=== PATIENT | male | born 1955 | race Caucasian/White ===

== ENCOUNTER 2020-07-12 07:03 | Inpatient (IN) | payer MEDICARE, SELFPAY ==
[2020-07-12] VITALS (12 sets, daily range): BP systolic 110–143; BP diastolic 58–95; PULSE 64–83; RESP 16–22; TEMP 36.1–36.6; O2SAT 91–100; BMI 38.5
--- NOTE | ~2020-07-12 | US_ITS ---
EXAMINATION: US abdomen complete DATE: 07/14/2020 09:02 INDICATION: Nausea. Abnormal liver function tests. TECHNIQUE: Multiple grayscale and Doppler ultrasound images of the abdomen were obtained. COMPARISON: CT abdomen and pelvis 07/12/2020 FINDINGS: The visualized portions of the head of the pancreas are normal. There is diffuse hepatic st eatosis with focal sparing. There is normal flow in main portal vein. The gallbladder is normal in si ze. No gallstones or gallbladder wall thickening. There was no sonographic Welch sign. The common du ct is mildly dilated to 8 mm. Inferior vena cava is normal. Abdominal aorta is obscured by bowel gas. The kidneys are normal size. The spleen is normal in size. IMPRESSION: 1. Diffuse hepatic steatosis. 2. Mildly dilated common duct, new from 07/12/2020. Reviewed, dictated and finalized at location B. PMENT MAINTENANCE SUPERVISOR
--- NOTE | ~2020-07-12 | XR_ITS ---
EXAMINATION: XR chest 2V DATE: 07/12/2020 07:31 INDICATION: Left-sided sharp chest pain. TECHNIQUE: frontal and lateral views of the chest were obtained. COMPARISON: None FINDINGS: Mild streaky left basilar atelectasis. No other airspace opacities, pulmonary edema, pleural effusion or pneumothorax. The cardiomediastinal silhouette is normal. There are bridging osteophytes at multi ple levels in the spine, consistent with diffuse idiopathic skeletal hyperostosis (DISH). IMPRESSION: 1. Mild left basilar atelectasis. Reviewed, dictated and finalized at location A. NNAISSANCE CREWMEMBER
--- NOTE | ~2020-07-12 | CT_ITS ---
EXAMINATION: CT chest abdomen pelvis w con DATE: 07/12/2020 10:01 INDICATION: Chest and abdominal pain. TECHNIQUE: Computed tomography (CT) of the chest, abdomen, and pelvis was performed with 100 mL Omnip aque 350 intravenous contrast. Automated exposure control and iterative reconstruction technique were employed. The dose-length product was 1610.38 mGy-cm. COMPARISON: None FINDINGS: CHEST CT: The lungs demonstrate motion artifact and mild atelectasis. A calcified left lung nodule is consisten t with old granulomatous disease. No pleural effusion. The heart size is normal. There are coronary a rtery calcifications. No pericardial effusion. There is mild mediastinal lymphadenopathy, likely reac tive. Bilateral gynecomastia is noted. The aorta is normal in caliber. There is mild thoracic spondyl osis. ABDOMEN/PELVIS CT: Calcifications in the liver and spleen are consistent with old granulomatous disease. The gallbladder , pancreas, adrenal glands, and left kidney are normal. There are cysts in right kidney measuring up to 14 mm. The prostate is mildly enlarged. There is diverticulosis of the colon without evidence of d iverticulitis. There are no dilated loops of bowel. The appendix is normal. There are no pathological ly enlarged lymph nodes. There is no free intraperitoneal fluid. Abdominal aorta is normal. There is moderate lumbar spondylosis. IMPRESSION: 1. Mild mediastinal lymphadenopathy, likely reactive. Reviewed, dictated and finalized at location B. WORK FEEDER
--- NOTE | 2020-07-12 07:10 | ECG_ITS ---
Measurements Intervals [place] Rate: 68 P: 58 AK: 161 QRS: -47 QRSD: 166 T: 33 QT: 407 QTc: 436 Interpretive Statements SINUS RHYTHM RIGHT BUNDLE BRANCH BLOCK INFERIOR INFARCT, AGE INDETERMINATE ABNORMAL ECG Electronically Signed On 07-12-2020 7:50:59 FILER FINISH by Stephon Vo D.O.
[2020-07-12 07:31] LABS: Basophils Percent Auto 0.5 % (0.2-1.2); Eosinophils Absolute Auto 0.2 K/mm3 (0-0.3); Eosinophils Percent Auto 2.6 % (0-4.4); Hematocrit 44.2 % (42.0-52.0); Hemoglobin 15.2 g/dL (14.0-18.0); Immature Granulocyte Absolute 0.04 K/mm3 (0.00-0.031); Immature Granulocyte Percent A 0.5 % (0-0.5); Lymphocytes Absolute Auto 2.26 K/mm3 (0.9-3.2); Lymphocytes Percent Auto 25.5 % (18.3-44.2); Mean Corpuscular HGB Conc 34.4 g/dl (32-36); Mean Corpuscular Hemoglobin 29.9 pg (26-34); Mean Corpuscular Volume 86.8 fl (80-100); Monocytes Absolute Auto 0.7 K/mm3 (0.1-0.6); Monocytes Percent Auto 7.6 % (2.6-8.5); Neutrophils Absolute Auto 5.6 K/mm3 (1.3-6.7); Neutrophils Percent Auto 63.3 % (45.5-73.1); Platelet Count Result 189 k/mm3 (150-375); Red Blood Count 5.09 M/mm3 (4.6-6.20); Red Cell Distribution Width 12.3 % (11.5-14.5); White Blood Count 8.9 K/mm3 (4.5-10.0)
[2020-07-12 07:40] LABS: INR 0.9; Prothrombin Time 12.8 Seconds (11.1-14.7)
[2020-07-12] MEDS: ONDANSETRON INJ 4 MG/2 ML VIAL 8 MG IV PUSH (07:40)
[2020-07-12 07:41] LABS: Partial Thromboplastin Time 25.1 SECONDS (22.3-36.8)
[2020-07-12] MEDS: ATROPINE SULFATE 1 MG/ML VIAL 0.4 MG IV PUSH (07:44)
--- NOTE | 2020-07-12 07:45 | ED.CHESTPAIN ---
HPI - Chest Pain General Chief Complaint: Chest Pain Stated Complaint: Chest pain Time Seen by Provider: 07/12/20 07:27 Source: patient and family Limitations: no limitations History of Present Illness HPI narrative: Patient is 65 years old white male presents with left side chest sharp pain at rest started 5 AM. Steady, constant, no aggravating or relieving factors. Currently patient feeling weak and nauseated. Patient denies radiation of pain or shortness of breath. Patient had similar symptom yesterday lasted for few hours then resolve spontaneously. Patient denies any fever, chills, shortness of breath, back pain, headache or exposure to anybody with COVID-19. Related Data Home Medications Medication Instructions Recorded Confirmed diclofenac sodium 50 mg PO DAILY 07/12/20 07/12/20 metformin 500 mg PO DAILY 07/12/20 07/12/20 simvastatin 5 mg PO DAILY 07/12/20 07/12/20 Allergies Allergy/AdvReac Type Severity Reaction Status Date / Time codeine Allergy Intermediate HIVES Verified 08/23/19 17:23 lisinopril Allergy Unknown Verified 08/23/19 17:23 Review of Systems Review of Systems: Narrative: CONSTITUTIONAL: Denies fever, chills, or sweats. EYES: Denies visual changes, redness, or discharge. ENT: Denies rhinorrhea, congestion, sore throat, or otalgia. CARDIOVASCULAR: Chest pain RESPIRATORY: Denies cough or dyspnea. GASTROINTESTINAL: Denies abdominal pain, nausea, vomiting, or diarrhea. GENITOURINARY: Denies dysuria or hematuria. SKIN: Denies rash or itching. MUSCULOSKELETAL: Denies back pain, joint pain, or myalgia. NEUROLOGIC: Denies headache, numbness, or weakness. PSYCHIATRIC: Denies anxiety or depression. PMFSH Past Medical History Medical History (Updated 07/12/20 @ 10:40 by Evelyne Alfaro MD) Diabetes mellitus, new onset Hyperlipidemia Hypertension Family History Family History Father Cerebrovascular accident Social History Social History Smoking status: Never smoker Alcohol intake: current Exam Narrative: Exam Narrative: General appearance: Well-developed, well-nourished Skin: Clammy skin, pale Head: Normocephalic, nontraumatic Eyes: Clear conjunctiva ENT: Oropharynx normal, ears normal, nose normal Neck: Supple, nontender Chest and respiratory: Airway patent, no respiratory distress, no accessory muscle use Heart: Regular rate/rhythm Abdomen: Soft, nontender, no organomegaly, quiet bowel sounds Vascular: Normal peripheral pulses, normal capillary refill. Musculoskeletal: Normal range of motion, nontender back Neurologic: Alert and oriented ?3, HOUSING DIRECTOR is normal as tested, no gross motor deficit Course Course Emergency Course: Improving Consultations Consultation #1: Nelda Wells the nurse practitioner of Dr. Radford community liaison. Was notified that the patient still having chest pain 2 out of 10. Will call me back to see if the patient can receive Lovenox at this moment or possible cardiac cath. Date: 07/12/20 Time: 10:40 Vital Signs Vital signs: Vital Signs Temperature 36.6 C 07/12/20 07:08 Pulse Rate 72 07/12/20 07:08 Respiratory Rate 16 07/12/20 07:08 Blood Pressure 137/95 H 07/12/20 07:08 Pulse Oximetry 97 07/12/20 07:08 Temperature 36.6 C 07/12/20 07:08 Pulse Rate 71 07/12/20 07:52 Respiratory Rate 18 07/12/20 07:52 Blood Pressure 118/70 07/12/20 07:52 Pulse Oximetry 91 07/12/20 07:52 MDM - Chest Pain MDM Narrative Medical decision making narrative: Patient presents with chest pain, in the ED patient was severely nauseated, pale and diaphoretic, heart
[2020-07-12 07:46] LABS: Anion Gap 6 mmol/L (8-16); Blood Urea Nitrogen 23 mg/dL (9-20); Calcium 8.9 mg/dL (8.4-10.2); Carbon Dioxide 28 mmol/L (22-30); Chloride 102 mmol/L (98-107); Estimated CRCL calculation 81 ml/min; Estimated Glomerular Filt Rate > 60; Glucose 270 mg/dL (75-110); Potassium 4.4 mmol/L (3.4-5.0); Sodium 136 mmol/L (137-145)
--- NOTE | 2020-07-12 07:49 | PC.NURSE ---
Pt called out and stated that pt wasn't feeling well. Pts heart rate was 40-47 pt was pale and diapiretic. 2nd EKG was done and 2nd line put in. Pts heart rate increased and pt states he is feeling better.
--- NOTE | 2020-07-12 07:52 | ECG_ITS ---
Measurements Intervals [place] Rate: 57 P: 29 SC: 188 QRS: -29 QRSD: 147 T: 3 QT: 415 QTc: 406 Interpretive Statements SINUS BRADYCARDIA ATRIAL AND VENTRICULAR PREMATURE COMPLEXES RIGHT BUNDLE BRANCH BLOCK INFERIOR INFARCT, AGE INDETERMINATE BASELINE ARTIFACT- I, II, AVR, V1, V4 ABNORMAL ECG Electronically Signed On 07-12-2020 8:05:24 DIRECTOR OPERATING ROOM by Stephon Vo D.O.
[2020-07-12] MEDS: SODIUM CHLORIDE 0.9% IV 1,000 ML 999 ML IV CONT (07:53)
[2020-07-12 07:58] LABS: Troponin I 0.165 ng/mL (0.000-0.034)
[2020-07-12 07:59] LABS: Alanine Aminotransferase 27 U/L (4-50); Albumin Level 3.9 g/dL (3.5-5.1); Alkaline Phosphatase 87 U/L (38-126); Aspartate Amino Transferase 32 U/L (17-59); Bilirubin,Total 0.8 mg/dL (0.2-1.3)
--- NOTE | 2020-07-12 08:10 | PC.NURSE ---
Pts called out stating that pt is having left arm pain 6/10 that started approx [address] Alfaro of this
[2020-07-12 08:19] LABS: Lipase 76 U/L (23-300)
[2020-07-12] MEDS: LORazepam INJ (*CRX) 2 MG/ML VIAL 1 MG IV PUSH (08:55)
[2020-07-12 11:00] LABS: Troponin I 0.135 ng/mL (0.000-0.034)
[2020-07-12] MEDS: NITROGLYCERIN SL 0.4 MG TABLET SUBLINGUAL ×2 (11:00→22:24)
--- NOTE | 2020-07-12 11:05 | PC.NURSE ---
second dose of nitro given to pt 11:05
--- NOTE | 2020-07-12 11:10 | PC.NURSE ---
pt received 3rd dose of Nitro /
[2020-07-12] MEDS: ENOXAPARIN 100 MG/ML SYRINGE SUB-Q (11:30)
--- NOTE | 2020-07-12 12:29 | ADMGEN ---
This patient, Sam Betts, was admitted to IMU Room 213-01. Patient/family oriented to hospital policies and general routines including ID bracelet, bed and alarms, visiting hours, pain management, procedures, bathroom and other care routines, personal items, smoking policy, room service/diet, and visiting hours. Information on how to activate the Rapid Response Team has been discussed. Patient/Family are encouraged to report perceived risks to care and to ask questions if they do not understand what they are told or what they should do.
--- NOTE | 2020-07-12 13:39 | PM.IMHP ---
H&P: HPI History of Present Illness Date/Time: 07/12/20 13:39 Chief complaint: Chest pain/NSTEMI Narrative: Sam Betts is a 65 year old male Has a history of having diabetes and hyper lipidemia. The patient has taken himself off his metformin. He has not had any previous history of any coronary artery disease. The patient stated this past Friday he did have some chest discomfort right before bed but he took a couple aspirin and went away on its own. Today he woke up at 5:00 a.m. this morning and felt okay but then he sat down to eat breakfast and developed some left-sided chest pain that radiated down his left arm. He was not able to complete his breakfast and was not of for headache or nauseated at that time. The patient stated that he had sharp pain he has not had any fever chills or shortness of breath. He has not had any exposure to COVID-19. it was noted in the ER records at the patient's heart rate went down to 36 beats per minute he was pale and diaphoretic. The patient was given Zofran and atropine for the symptoms listed above. Patient's heart rate has improved. The patient denies trying any new prescription medications or [id number] medication. Patient's troponin 0.165 and 0.135. Cardiology has been consulted. His glucose is 270. EKG was read as sinus bradycardia with a heart rate 57 with a right bundle branch block. An iron review past records and it looks like the right bundle branch block is chronic. The patient is being admitted into inpatient status on the date of service of 07/12/2020 Review of Systems Review of Systems: All systems reviewed & are unremarkable except as noted in HPI and below Constitutional: Constitutional: Reports as per HPI and Reports no additional constitutional complaints Eyes: Eyes: Reports as per HPI and Reports no additional eye complaints ENT: Reports system reviewed and no additional complaints, except as documented and Reports Normal hearing present Cardiovascular: Cardiovascular: Reports no additional cardiovascular complaints Respiratory: Respiratory: Reports no additional respiratory complaints and Reports no additional respiratory complaints Gastrointestinal: Gastrointestinal: Reports as per HPI and Reports no additional gastrointestinal complaints Musculoskeletal: Musculoskeletal: Reports no additional musculoskeletal complaints Integumentary/Breasts: Skin/Breast: Reports system reviewed and no additional complaints, except as docu and Reports as per HPI Neurologic: Reports system reviewed and no additional complaints, except as documented, Reports as per HPI and Reports Normal hearing present Psychiatric: Psychiatric: Reports no additional psychiatric complaints and Reports as per HPI Endocrine: Endocrine: Reports no additional endocrine complaints Hematologic/Lymphatic: Hematologic/Lymphatic: Reports no additional hematologic/lymphatic complaints Allergic/Immunologic: Allergic/Immunologic: Reports no additional allergic/immunologic complaints [facility] Past Medical History Medical History (Updated 07/12/20 @ 13:46 by Jaclyn Vazquez NP) Diabetes mellitus, new onset DM2 (diabetes mellitus, type 2) Hyperlipidemia Hypertension Rheumatoid arthritis Surgical History Surgical History (Updated 07/12/20 @ 13:46 by Jaclyn Vazquez NP) H/O colonoscopy with polypectomy S/P tonsillectomy and adenoidectomy Family History Family History (Updated 07/12/20 @ 13:47 by Jaclyn Vazquez NP) Father Cerebrovascular accident Mother Congestive heart failure Social History Social History (Updated 07/12/20 @ 13:49 by Jaclyn Vazquez NP) Social History: the patient lives with his Lupe and she is the durable power commercial litigation attorney. The patient is listed as a full code. The patient has 2 biological children and 1 stepchild. He occasionally drinks a your glass in line. The patient is retired from [employer]. he is a lifelong nonsmoker no laurajukia
[2020-07-12 13:47] LABS: Troponin I 0.311 ng/mL (0.000-0.034)
[2020-07-12] MEDS: DICLOFENAC SOD 25 MG TABLET.EC 50 MG PO (17:05)
--- NOTE | 2020-07-12 17:45 | PM.CNCAR ---
Assessment and Plan Assessment and plan (1) Acute non-ST elevation myocardial infarction (NSTEMI): Code(s): I21.4 - Non-ST elevation (NSTEMI) myocardial infarction Status: Acute Assessment and Plan: The patient has multiple risk factors for CAD, chest pain which is fairly typical for non-STEMI and troponins which reflected non-STEMI. He has had some mild recurrent chest discomfort this evening. I am recommending cardiac catheterization tomorrow, with possible PCI. Reviewed the procedure with the patient in detail. Reviewed possible risks and complications with patient including breathing problems, bleeding problems, blood vessel problems, unanticipated surgery, allergic reactions, kidney problems, CVA, RI, and among others. Discussed possibility of stenting and possible need for DAPT. Discussed the possibility that if DAPT is interrupted stent thrombosis can occur resulting in heart attack and . Patient understands risks and desires to proceed. (2) Hypertension: Code(s): I10 - Essential (primary) hypertension Status: Acute Assessment and Plan: Blood pressure at goal today. (3) Hyperlipidemia: Code(s): E78.5 - Hyperlipidemia, unspecified Status: Chronic Assessment and Plan: Takes a low dose of simvastatin Recheck lipids and likely increased to a high dose statin depending on cath results. (4) DM2 (diabetes mellitus, type 2): Code(s): E11.9 - Type 2 diabetes mellitus without complications Status: Chronic Assessment and Plan: Treatment per hospitalists History of Present Illness History of Present Illness Consult date/time: 07/12/20 17:45 Requesting physician: Buster Vargas MD Consult reason: chest pain Reason For Visit: Chest pain/NSTEMI Narrative: Date of service: 07/12/2020 Mr. Sam Betts is a 65-year-old white male whom we were asked to see at the request of Dr. Vargas for elevated troponins and chest pain consultation. He has history of hypertension, diabetes and hyperlipidemia but no prior history of heart disease. The patient is very active, and tries to walk 2.5 miles a few times a week. He was in his normal state of health until Friday night when he went to bed and he felt tingling in his left arm in his left chest felt uncomfortable. He got up stretched and walked around and it resolved. He did fine on his walk on Friday. This morning he woke up around 430 and was sitting at the computer reading and eating cereal around 530 when he started having more intense discomfort of the left chest which was a hurting sharp unremitting discomfort with some tingling of his left arm. He has some nausea with it. At its worst it was in -05/13. He came to the emergency room when it was quite intense. He has some lower abdominal discomfort and nausea and apparently once had vomiting with his heart rate down to 36 beats per minute and a drop in blood pressure down to his 80/50. He was sweaty and diaphoretic but recovered. He also was given some nitroglycerin which relieved the discomfort within 5 minutes. REc'd Lovenox around 11;30 a.m. He has been doing well until he started feeling some mild discomfort again this evening. Patient's troponins are 0.165, 0.135, and 0.311. His EKG had nonspecific findings. No history of bleeding problems. He does have a lot of anxiety at times. Some nausea associated with narcotics. Review of Systems Constitutional: Constitutional: Denies lethargy Eyes: Eyes: Reports no additional eye complaints ENT: Denies epistaxis and Denies nasal congestion Cardiovascular: Cardiovascular: Reports chest pain, Denies pedal edema, Denies lightheadedness and Denies palpitations Respiratory: Respiratory: Denies cough and Denies dyspnea Gastrointestinal:
[2020-07-12 18:09] LABS: Glucose Point of Care 153 (65-105)
[2020-07-12] MEDS: METOPROLOL TARTRATE 25 MG TABLET PO ×2 (18:32→22:25)
[2020-07-12] MEDS: NITROGLYCERIN OINTMENT 1 INCH DOSE 0.5 INCH TRANSDERM (18:33)
[2020-07-12 20:25] LABS: Glucose Point of Care 184 (65-105)
[2020-07-12] MEDS: LORazepam (*CRX) 0.5 MG TABLET PO (22:24)
[2020-07-13] VITALS (41 sets, daily range): BP systolic 93–143; BP diastolic 46–92; PULSE 60–86; RESP 12–21; TEMP 36.4–37.1; O2SAT 92–100
--- NOTE | 2020-07-13 00:43 | ADMGEN ---
This patient, Sam Betts, was admitted to [facility] Room 4. Patient/family oriented to hospital policies and general routines including ID bracelet, bed and alarms, visiting hours, pain management, procedures, bathroom and other care routines, personal items, smoking policy, room service/diet, and visiting hours. Information on how to activate the Rapid Response Team has been discussed. Patient/Family are encouraged to report perceived risks to care and to ask questions if they do not understand what they are told or what they should do. Report received from LORRIE Osullivan in IMU. Pt. denies chest pain at this time. Pt. appears to be in no apparent distress, able to ambulate independently. Pt. placed on monitoring engineer. Will continue to monitor pt.
[2020-07-13 05:47] LABS: Basophils Percent Auto 0.2 % (0.2-1.2); Eosinophils Absolute Auto 0.1 K/mm3 (0-0.3); Eosinophils Percent Auto 0.9 % (0-4.4); Hematocrit 42.3 % (42.0-52.0); Hemoglobin 14.3 g/dL (14.0-18.0); Immature Granulocyte Absolute 0.06 K/mm3 (0.00-0.031); Immature Granulocyte Percent A 0.4 % (0-0.5); Lymphocytes Absolute Auto 1.96 K/mm3 (0.9-3.2); Lymphocytes Percent Auto 14.1 % (18.3-44.2); Mean Corpuscular HGB Conc 33.8 g/dl (32-36); Mean Corpuscular Hemoglobin 30.6 pg (26-34); Mean Corpuscular Volume 90.4 fl (80-100); Mean Platelet Volume 11.2 fl (7.4-10.4); Monocytes Absolute Auto 1.3 K/mm3 (0.1-0.6); Monocytes Percent Auto 9.6 % (2.6-8.5); Neutrophils Absolute Auto 10.4 K/mm3 (1.3-6.7); Neutrophils Percent Auto 74.8 % (45.5-73.1); Platelet Count Result 182 k/mm3 (150-375); Red Blood Count 4.68 M/mm3 (4.6-6.20); Red Cell Distribution Width 12.8 % (11.5-14.5); White Blood Count 13.9 K/mm3 (4.5-10.0)
[2020-07-13] MEDS: METOPROLOL TARTRATE 25 MG TABLET PO ×3 (05:49→21:55)
[2020-07-13] MEDS: NITROGLYCERIN OINTMENT 1 INCH DOSE 0.5 INCH TRANSDERM (05:50)
[2020-07-13 06:02] LABS: Glucose Point of Care 193 (65-105)
[2020-07-13] MEDS: LORazepam (*CRX) 0.5 MG TABLET PO ×2 (07:23→15:20)
[2020-07-13] MEDS: ASPIRIN 81 MG CHEWABLE TABLET PO (07:23)
[2020-07-13] MEDS: ONDANSETRON INJ 4 MG/2 ML VIAL IV PUSH (07:23)
[2020-07-13 07:28] LABS: Alanine Aminotransferase 52 U/L (4-50); Albumin Level 3.7 g/dL (3.5-5.1); Alkaline Phosphatase 73 U/L (38-126); Anion Gap 6 mmol/L (8-16); Aspartate Amino Transferase 289 U/L (17-59); Bilirubin,Total 0.8 mg/dL (0.2-1.3); Blood Urea Nitrogen 19 mg/dL (9-20); Carbon Dioxide 28 mmol/L (22-30); Chloride 103 mmol/L (98-107); Cholesterol 183 mg/dL (0-200); Estimated CRCL calculation 88 ml/min; Estimated Glomerular Filt Rate > 60; Glucose 192 mg/dL (75-110); Lipase 456 U/L (23-300); Magnesium 1.6 mg/dL (1.6-2.3); Potassium 4.2 mmol/L (3.4-5.0); Sodium 137 mmol/L (137-145)
[2020-07-13 07:39] LABS: LDL Cholesterol Direct 136 mg/dL
--- NOTE | 2020-07-13 08:11 | ECG_ITS ---
Measurements Intervals [place] Rate: 75 P: 64 [place]: 184 QRS: -39 QRSD: 160 T: 42 QT: 393 QTc: 441 Interpretive Statements SINUS RHYTHM LEFT AXIS DEVIATION RIGHT BUNDLE BRANCH BLOCK INFERIOR INFARCT, AGE INDETERMINATE SUBTLE ST ELEVATION IN ANTEROSEPTAL LEADS- CONSIDER ACUTE INJURY BASELINE ARTIFACT- I, II, AVR, AVF ABNORMAL ECG Electronically Signed On 07-13-2020 8:56:39 PRINCIPAL TECHNICAL WRITER by Stephon Vo D.O.
--- NOTE | 2020-07-13 09:34 | PM.IMPN ---
Progress Note: A&P Assessment and Plan (1) Acute non-ST elevation myocardial infarction (NSTEMI): Code(s): I21.4 - Non-ST elevation (NSTEMI) myocardial infarction Status: Acute Assessment and Plan: patient's troponin level elevatin.165, 0.135, 0.311, 35.400 at 0530 this morning. Chest pain prior to admission, no longer has any chest pain. patient is is on aspirin received atropine in the emergency room. 1 episode of bradycardia and is now sinus rhythm. given subcu Lovenox in the emergency room. patient stated that his pain was relieved with the nitro. Only nausea symptoms remain at this time WBC count increased from 8.9-13.9, likely reactive, ordered UA and will repeat CBC in the morning Dr. Ngo completed a cardiac catheterization this morning. LAD occlusion was found in a drug-eluting stent was placed. Following jewel hole finish opener's recommendations at this time. (2) Rheumatoid arthritis: Code(s): M06.9 - Rheumatoid arthritis, unspecified Status: Chronic Assessment and Plan: Patient is on diclofenac and will continue with that. patient has not followed up with endocrinology. monitor closely for any signs and symptoms of bleeding Hemoglobin 14.3, hematocrit 42.3, platelets 182. patient is on SQ Lovenox diclofenac and aspirin. repeating CBC in morning. (3) Hyperlipidemia: Code(s): E78.5 - Hyperlipidemia, unspecified Status: Chronic Assessment and Plan: Yesterday LFTs were all within normal limits, today liver functions are all elevated. he possibly suffered some liver shock with the LAD occlusion, we will continue to monitor these LFTs daily with serial labs holding simvastatin at this due to this acute liver dysfxn (4) DM2 (diabetes mellitus, type 2): Code(s): E11.9 - Type 2 diabetes mellitus without complications Status: Chronic Assessment and Plan: Check A1c. Continue with sliding scale insulin. The patient stated that he stop taking metformin Glucose 270 yesterday, glucose 192 today Currently has a heart healthy diet, but may need diabetic diet as well. Subjective Date/time seen: 07/13/20 09:34 Patient was admitted as a non STEMI and will be undergoing a cardiac catheterization this morning. He denies any dysuria or hematuria, denies any rectal bleeding or pain with bowel movements. He is not having any abdominal pain at this time. He states he does feel nauseated at this time due to NPO status. He says he may have a problem with constipation so I have ordered scheduled as well as p.r.n. medications to treat constipation. He is currently not having any chest pain or discomfort, no arm shoulder pain or numbness, no jaw pain. No shortness of breath or dyspnea with conversation. He is currently comfortable and resting. *Upon repeat later review of his cardiac catheterization results he was found to have an LAD occlusion and a drug-eluting stent was placed. Review of Systems Review of Systems: All systems reviewed & are unremarkable except as noted in HPI and below Constitutional: Constitutional: Reports as per HPI, Reports no additional constitutional complaints, Denies chills and Denies lethargy Eyes: Eyes: Reports as per HPI and Reports no additional eye complaints ENT: Reports system reviewed and no additional complaints, except as documented, Reports Normal hearing present, Denies headache(s), Denies epistaxis and Denies nasal congestion Cardiovascular: Cardiovascular: Reports as per HPI, Reports no additional cardiovascular complaints, Reports chest pain, Denies pedal edema, Denies lightheadedness, Denies palpitations and Denies dyspnea Respiratory: Respiratory: Reports as per HPI, Reports no additional respiratory complaints, Reports no additional respiratory complaints, Denies cough and Denies dyspnea Gastrointestinal: Gastrointestinal: Reports as per HPI, Reports no additional gastrointestinal complaints, Denies melena, Re
[2020-07-13] MEDS: DICLOFENAC SOD 25 MG TABLET.EC 50 MG PO ×2 (10:14→18:34)
[2020-07-13] MEDS: DOCUSATE SODIUM 100 MG CAPSULE PO ×2 (10:14→20:56)
[2020-07-13] MEDS: SIMVASTATIN 5 MG TABLET PO (10:14)
[2020-07-13] MEDS: PANTOPRAZOLE SODIUM IV 40 MG VIAL IV PUSH (10:14)
--- NOTE | 2020-07-13 10:14 | WPDHPUPDATE1 ---
History and Physical Update Update Date/Time: 07/13/20 10:14 History and Physical has been reviewed, including an updated exam of the patient. Patient's discomfort last evening responded to in nitroglycerin and he has had no further problems. Elevated troponin of 30 noted this morning. EKG shows the same Q-waves in 3 and AVF but subtle ST elevation in V1 and V2. Patient is completely pain-free at the moment. There are NO changes in the patient's condition. Risks, benefits, and alternatives have been discussed and questions answered. Patient agrees to proceed with procedure.
--- NOTE | 2020-07-13 10:15 | WPDMODSED ---
Moderate Sedation Note-Pt Data Patient Data Diagnosis: NSTEMI Present Complaint: Chest pain Procedure to be performed/Plan: Conscious sedation left heart catheterization with possible PCI Allergies Allergy/AdvReac Type Severity Reaction Status Date / Time codeine Allergy Intermediate HIVES Verified 08/23/19 17:23 lisinopril Allergy Unknown Verified 08/23/19 17:23 Home Medications Medication Instructions Recorded Confirmed Type diclofenac sodium 50 mg 50 mg PO BID #180 tablet 10/08/19 07/12/20 Rx tablet,delayed release simvastatin 5 mg PO DAILY 07/12/20 07/12/20 History Current Medications: Active Medications Aspirin (Aspirin 81 Mg Chewable Tablet) 81 mg PO DAILY@0800 [facility] Last Admin: 07/13/20 07:23 Dose: 81 mg Documented by: Dextrose (Dextrose 50% 25 Gm/50 Ml Syringe) 12.5 gm IV PUSH PRN PRN; Protocol PRN Reason: Hypoglycemia Diclofenac Sodium (Diclofenac Sod 25 Mg Tablet.Ec) 50 mg PO BID [facility] Last Admin: 07/13/20 10:14 Dose: 50 mg Documented by: Docusate Sodium (Docusate Sodium 100 Mg Capsule) 100 mg PO Q12HR [facility] Last Admin: 07/13/20 10:14 Dose: 100 mg Documented by: Enoxaparin Sodium (Enoxaparin 40 Mg/0.4 Ml Syringe) 40 mg SUB-Q DAILY [facility] Last Admin: 07/13/20 10:03 Dose: Not Given Documented by: Famotidine (Famotidine 20 Mg Tablet) 20 mg PO Q12HR PRN PRN Reason: GERD Glucagon (Glucagon For Inj 1 Mg Vial) 1 mg IM PRN PRN; Protocol PRN Reason: Hypoglycemia Glucose (Glucose Oral Gel 15 Gm Of Glucse In 37.5 Gm Tube) 15 gm PO PRN PRN; Protocol PRN Reason: Hypoglycemia Acetaminophen (Ofirmev 1,000 Mg Ivpb) 1,000 mg in 100 mls @ 400 mls/hr IVPB Q6H PRN PRN Reason: Mild Pain (1-3) or Fever Stop: 07/13/20 10:34 Dextrose (Dextrose 5% 1,000 Ml) 1,000 mls @ 100 mls/hr IVPB PRN PRN; Protocol PRN Reason: Hypoglycemia Insulin Aspart (Insulin Aspart (*Bkc) 100 Units/Ml) 2 - 5 units SUB-Q TIDWM [facility]; Protocol Last Admin: 07/13/20 07:18 Dose: Not Given Documented by: Lorazepam (Lorazepam (*Crx) 0.5 Mg Tablet) 0.5 mg PO Q6H PRN PRN Reason: Anxiety Last Admin: 07/13/20 07:23 Dose: 0.5 mg Documented by: Metoprolol Tartrate (Metoprolol Tartrate 25 Mg Tablet) 25 mg PO Q8HR [facility] Last Admin: 07/13/20 05:49 Dose: 25 mg Documented by: Nitroglycerin (Nitroglycerin Sl 0.4 Mg Tablet) 0.4 mg SUBLINGUAL Q5MIN PRN PRN Reason: Chest Pain Last Admin: 07/12/20 22:24 Dose: 0.4 mg Documented by: Nitroglycerin (Nitroglycerin Ointment 1 Inch Dose) 0.5 inch TRANSDERM Q6HR [facility] Last Admin: 07/13/20 05:50 Dose: 0.5 inch Documented by: Ondansetron HCl (Ondansetron Inj 4 Mg/2 Ml Vial) 4 mg IV PUSH Q4H PRN PRN Reason: Nausea Last Admin: 07/13/20 07:23 Dose: 4 mg Documented by: Pantoprazole Sodium (Pantoprazole Sodium Iv 40 Mg Vial) 40 mg IV PUSH QAM [facility] Last Admin: 07/13/20 10:14 Dose: 40 mg Documented by: Polyethylene Glycol (Polyethylene Glycol 3350 17 Gm Powd.Pack) 17 gm PO QAM PRN PRN Reason: Constipation Senna/Docusate Sodium (Senna/Docusate Sodium Tablet) 1 tab PO HS PRN PRN Reason: constipation Simvastatin (Simvastatin 5 Mg Tablet) 5 mg PO DAILY [facility] Last Admin: 07/13/20 10:14 Dose: 5 mg Documented by: Sedation/Anesthesia: No previous sedation/anesthesia problems (including family history). [facility] Past Medical History Medical History (Updated 07/12/20 @ 17:52 by Kati Carpio MD) Anxiety Claustrophobia Diabetes mellitus, new onset DM2 (diabetes mellitus, type 2) Hyperlipidemia Hypertension Rheumatoid arthritis Surgical History Surgical History (Updated 07/12/20 @ 13:46 by Jaclyn Vazquez NP) H/O colonoscopy with polypectomy S/P tonsillectomy and adenoidectomy Family History Family History (Updated 07/12/20 @ 17:53 by Kati Carpio MD) Father Cerebrovascular accident Mother Congestive heart failure age 97, no history of CAD Social History Social History (Updated 07/12/20 @ 17:54 by Kati Carpio MD) Social Hi
--- NOTE | 2020-07-13 11:07 | PC.NURSE ---
0800-yobani held per MD order for cardiac cath today
[2020-07-13 11:38] LABS: Glucose Point of Care 186 (65-105)
--- NOTE | 2020-07-13 13:50 | ECG_ITS ---
Measurements Intervals Council Rate: 84 P: 55 ME: 179 QRS: -44 QRSD: 164 T: 75 QT: 384 QTc: 454 Interpretive Statements SINUS RHYTHM RIGHT BUNDLE BRANCH BLOCK ANTEROSEPTAL INFARCT, AGE INDETERMINATE INFERIOR INFARCT, AGE INDETERMINATE BASELINE ARTIFACT- I, III AVL, AVF ABNORMAL ECG Electronically Signed On 07-13-2020 14:27:50 OPTICAL ASSISTANT by Stephon Vo D.O.
--- NOTE | 2020-07-13 13:56 | P.PCNCC_ITS ---
Cardiac Cath Procedure Note Date of procedure:: 07/13/20 Performing physician:: Porfirio Radford MD Indication:: non ST-elevation OR Brief clinical history:: this is a 65-year-old man who presented yesterday with chest pain, ECG showed right bundle branch block and nonspecific ST segment changes. Troponin however vanessa to over 30 and angiography today demonstrates a 100% occlusion of the LAD after 2 small diagonal branches. There are no other coronary lesions of significance and PCI of this was recommended after angiography was just completed in this laboratory by Dr. Carpio. 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 The patient was systemically anticoagulated with Angiomax and received 180 mg of Brilinta orally prior to PCI. I placed a 6 [place] African CLS 3.5 guiding catheter in the aortic root was unable to engage the left main coronary artery with this. I then successfully engaged using a JL4 guiding catheter. I then advanced a 0.014 BMW wire into the left main into the LAD and was unable to cross the lesion. The BMW wire was withdrawn and a 0.014 pilot plant operator 150 wire was successfully crossed the lesion into a diagonal branch. I used the 2.5 mm emerge PTCA balloon to dilate the total occlusion which then restored flow into the LAD itself. Once the vessel was opened I placed the BMW wire back into the left coronary artery and around the bifurcation and down into the distal LAD down to the apex. After this the LAD was pre-dilated using a 3.0 x 20 mm emerge PTCA balloon and then was stented using a 3.0 x 26 mm Orsiro drug-eluting stent with a nice anatomical result. There was a visible step-down at the distal margin of the stent indicating a good stent apposition. At the end of the stent deployment there was ROWENA 3 flow down to the apex no evidence of dissection disruption or distal embolization of the LAD. Findings:: 100% occlusion of the LAD after 2 small diagonal branches resulting in acute OR with presentation yesterday. Successful PCI of this lesion as detailed above Conclusion:: 1. 100% occlusion of the LAD clinically felt to have occurred yesterday although the electrocardiogram really did not show changes typical of acute anterior injury. 2. Successful PCI of the LAD occlusion using the 3 x 26 mm Orsiro drug- eluting stent to the target lesion resulting in a very nice angiographic result and yarsani of ROWENA 3 flow into the LAD. Porfirio Radford MD [facility]
[2020-07-13] MEDS: SODIUM CHLORIDE 0.9% IV 1,000 ML 125 ML IV CONT (14:30)
--- NOTE | 2020-07-13 18:20 | PC.NURSE ---
1800-pt requires frequent redirection to lie still. Emphasized the importance of lying still and pt states he is unable to do it. Will continue to monitor and emphasize importance of lying still.
[2020-07-13 18:29] LABS: Glucose Point of Care 176 (65-105)
--- NOTE | 2020-07-13 19:49 | PM.PROC ---
Procedure Note - Detailed Date of procedure: 07/13/20 Pre-op diagnosis: Non ST elevation CA/status post LAD stent Post-op diagnosis: same Procedure performed: Conscious sedation Left heart catheterization Description of procedure: Procedure: 1. Conscious sedation 2. Left heart catheterization 3. Selective Coronary angiography 4. Left ventriculography Site: Right femoral artery Catheters: 5 [place] African arterial sheath, 5 [place] African 4 cm right and left Eze catheters, 5 [place] pigtail catheter, 6 [place] African arterial sheath Conscious sedation: The patient has no known prior history of adverse affects of conscious sedation. Oropharynx was clear. The patient is deemed a good candidate for conscious sedation. Conscious sedation began at: 1252 Conscious sedation ended at: 1308 Total conscious sedation time: 16 minutes Medications: Versed 2 mg, fentanyl 50 mcg IV push The patient had continuous hemodynamic monitoring, and was also continuously monitored by: Heraclio Strange RN The patient tolerated conscious sedation well. Detailed procedure: After informed consent the patient brought to the catholic priest and the right femoral area was prepped and draped in the usual fashion. After conscious sedation and local anesthesia the right femoral artery was punctured and cannulated with the arterial sheath. Selective Coronary angiography was performed with the coronary catheters in multiple projections. These were withdrawn. The pigtail catheter was advanced into the central circulation and left ventricle for pressure measurements and left ventriculography which was performed in the DOVE projection. This was withdrawn. Later the arterial sheath was replaced with a 6 [place] African sheath over its wire anticipating PCI. The patient tolerated the procedure well with no complications. Estimated blood loss was negligible. Anesthesia: local ( With conscious sedation) Surgeon: Kati Carpio MD Estimated blood loss (mL): 10 Drains: No Packing: No Pathology: none sent Complications: No immediate complications Condition: stable Disposition: observation Findings: Pressures: Pre angiographic aortic pressure was 120/64 and LV was 124/30 mmHg. Left coronary artery: The left main was patent. There was a 40% stenosis of the proximal Left anterior descending. After 2 small diagonals the Left anterior descending was completely occluded with a hazy thrombus. There were some [id number] collaterals present. The circumflex gave rise to 2 good-sized obtuse marginal vessels which had mild luminal irregularities. Right coronary artery: The dominant right coronary artery had minimal luminal irregularities Left ventriculogram: Left ventriculography revealed akinesis to dyskinesis of the mid and distal anterior schmitz, apex, and mid and distal inferior wall. The base of the ventricle was hyperdynamic. The estimated ejection fraction was estimated to be 30%. Conclusions: Occluded mid Left anterior descending with 40% proximal Left anterior descending stenosis and mild luminal irregularities elsewhere. Severe left ventricular dysfunction with akinesis to dyskinesis of the mid and distal anterior schmitz, apex, and mid and distal inferior wall. EF 30%. Elevated left ventricular end-diastolic pressure Recommendation: The patient underwent PCI and a drug-eluting stent was placed in the mid Left anterior descending by Dr. Radford. We hope it there is some improvement of left ventricular dysfunction and that the myocardium is stunned and not completely infarcted.
[2020-07-13] MEDS: TICAGRELOR 90 MG TABLET PO (20:56)
[2020-07-13] MEDS: carvediloL 6.25 MG TABLET PO (20:56)
[2020-07-13 22:49] LABS: Glucose Point of Care 256 (65-105)
[2020-07-14] VITALS (12 sets, daily range): BP systolic 95–108; BP diastolic 53–61; PULSE 66–78; RESP 14–23; TEMP 35.9–36.5; O2SAT 97–98
[2020-07-14] MEDS: LORazepam (*CRX) 0.5 MG TABLET PO (01:05)
[2020-07-14 05:47] LABS: Basophils Percent Auto 0.1 % (0.2-1.2); Eosinophils Percent Auto 0.3 % (0-4.4); Hematocrit 39.4 % (42.0-52.0); Hemoglobin 13.2 g/dL (14.0-18.0); Immature Granulocyte Absolute 0.07 K/mm3 (0.00-0.031); Immature Granulocyte Percent A 0.6 % (0-0.5); Lymphocytes Absolute Auto 1.35 K/mm3 (0.9-3.2); Lymphocytes Percent Auto 10.7 % (18.3-44.2); Mean Corpuscular HGB Conc 33.5 g/dl (32-36); Mean Corpuscular Hemoglobin 30.1 pg (26-34); Mean Corpuscular Volume 89.7 fl (80-100); Mean Platelet Volume 11.5 fl (7.4-10.4); Monocytes Absolute Auto 1.5 K/mm3 (0.1-0.6); Monocytes Percent Auto 11.6 % (2.6-8.5); Neutrophils Absolute Auto 9.7 K/mm3 (1.3-6.7); Neutrophils Percent Auto 76.7 % (45.5-73.1); Platelet Count Result 147 k/mm3 (150-375); Red Blood Count 4.39 M/mm3 (4.6-6.20); Red Cell Distribution Width 12.9 % (11.5-14.5); White Blood Count 12.6 K/mm3 (4.5-10.0)
[2020-07-14] MEDS: METOPROLOL TARTRATE 25 MG TABLET PO (05:48)
[2020-07-14 06:04] LABS: Alanine Aminotransferase 56 U/L (4-50); Albumin Level 3.5 g/dL (3.5-5.1); Alkaline Phosphatase 63 U/L (38-126); Anion Gap 6 mmol/L (8-16); Aspartate Amino Transferase 184 U/L (17-59); Blood Urea Nitrogen 22 mg/dL (9-20); Calcium 8.4 mg/dL (8.4-10.2); Carbon Dioxide 29 mmol/L (22-30); Chloride 99 mmol/L (98-107); Cholesterol 161 mg/dL (0-200); Estimated CRCL calculation 67 ml/min; Estimated Glomerular Filt Rate > 60; Glucose 201 mg/dL (75-110); HDL Direct 32 mg/dL; Lipase 38 U/L (23-300); Sodium 134 mmol/L (137-145); Triglycerides 156 mg/dL (<150)
[2020-07-14 06:14] LABS: LDL Cholesterol Direct 106 mg/dL
[2020-07-14 07:55] LABS: Glucose Point of Care 210 (65-105)
[2020-07-14] MEDS: INSULIN ASPART (*BKC) 100 UNITS/ML SUB-Q ×2 (08:12→13:01)
[2020-07-14] MEDS: carvediloL 6.25 MG TABLET PO (08:15)
[2020-07-14] MEDS: ASPIRIN 81 MG CHEWABLE TABLET PO (08:15)
[2020-07-14] MEDS: DICLOFENAC SOD 25 MG TABLET.EC 50 MG PO (08:16)
[2020-07-14] MEDS: DOCUSATE SODIUM 100 MG CAPSULE PO (08:16)
[2020-07-14] MEDS: ENOXAPARIN 40 MG/0.4 ML SYRINGE SUB-Q (08:18)
[2020-07-14] MEDS: PANTOPRAZOLE SODIUM IV 40 MG VIAL IV PUSH (08:19)
[2020-07-14] MEDS: ROSUVASTATIN 10 MG TABLET 20 MG PO (08:19)
[2020-07-14] MEDS: TICAGRELOR 90 MG TABLET PO (08:20)
--- NOTE | 2020-07-14 10:10 | PM.PNCARD ---
Progress Note: A&P Additional Plan 65-year-old man with: Coronary artery disease acute non ST elevation OK surprisingly due to proximal occlusion of the LAD. Was able to perform successful PCI with a drug-eluting stent to the target lesion with a good anatomical result. He does have significant left ventricular systolic dysfunction. Having said all that he is clinically stable. Looking at his medical regimen he is currently taking 2 beta-blockers and no ARB or Javier inhibitor. I am going to stop his metoprolol and continue his carvedilol. I will add losartan at a modest dosage of 25 mg daily. He will obviously be continued on dual anti-platelet therapy as well as rosuvastatin. Anticipate the patient being discharged today as he is relatively insistent on this. I will arrange for follow-up in the office with Dr. DESIERE delarosa subsequent to discharge. Porfirio Radford MD [facility] Subjective Date/time seen: Date of service: 07/14/20 10:10 Interval history: Follow-up visit in this 65-year-old man with: Sizable non ST-elevation OK due to occlusion of the LAD. The vessel was successfully revascularized yesterday with PTCA and stenting. The electrocardiogram did not suggest acute anterior infarction and he did have some collateral circulation leading to the Hope/impression that much of his anterior wall is stunned rather than infarcted. Patient is asymptomatic this morning feels well and would like to be discharged. Long discussion with the patient about the usual recommendation to remain in the hospital for at least another 24 hours or so because of arrhythmic risk after a significant infarction. Having said all that he still is relatively insistent on going home. He uses as the reason for this the inability to get a good night sleep in the hospital and get proper rest he believes he will recover more effectively resting at home Exam Const: General: comfortable and no acute distress; No confusion Orientation/consciousness: No confusion HENMT: General nose exam: no epistaxis Mouth: Yes moist mucous membranes Eyes: EOM: EOMs intact bilaterally Neck: Neck: supple and no JVD Thyroid: thyroid normal Carotids: no bruits Resp: Effort & Inspection: normal respiratory effort Auscultation: clear to auscultation bilaterally Cardio: Rate: regular rate Rhythm: regular rhythm Heart sounds: no murmurs Other: Intact femoral and pedal pulses, no femoral bruit Skin: General skin exam: normal color and no rashes or lesions noted Neuro: General: No confusion Cognition (Neuro): normal cognition Speech: normal speech Motor exam (neuro): Normal motor muscle tone present throughout Extrem: General: no edema Psych: Mental Status: mental status grossly normal Affect: normal affect Objective Data Vital Signs Vital Signs: Vital Signs - 24 hr 07/13/20 11:42 07/13/20 14:00 07/13/20 14:15 Temperature Pulse Rate 74 65 70 Respiratory Rate 14 16 16 Blood Pressure 119/63 124/79 123/63 Pulse Oximetry 96 98 98 07/13/20 14:20 07/13/20 14:30 07/13/20 14:45 Temperature 37.1 C Pulse Rate 80 60 76 Respiratory Rate 17 15 Blood Pressure 136/72 134/72 Pulse Oximetry 98 95 07/13/20 15:00 07/13/20 15:15 07/13/20 15:20 Temperature Pulse Rate 67 61 86 Respiratory Rate 16 12 Blood Pressure 118/73 120/69 Pulse Oximetry 96 96 07/13/20 15:30 07/13/20 15:45 07/13/20 16:00 Temperature Pulse Rate 83 81 76 Respiratory Rate 14 14 14 Blood Pressure 131/68 140/72 103/62 Pulse Oximetry 98 100 100 07/13/20 16:30 07/13/20 17:00 07/13/20 17:21 Temperature Pulse Rate 65 62 76 Respiratory Rate 17 14 15 Blood Pressure 125/73 143/71 H 129/67 Pulse Oximetry 97 96 96 07/13/20 17:27 07/13/20 17:30 07/13/20 17:35 Temperature Pulse Rate 76 79 78 Respiratory Rate 16 18 17 Blood Pressure 133/66 130/67 130/64 Pulse Oximetry 96 96 96 07/13/20 17:37 07/13/20 17:45 07/13/20 17:50 Temperature Pulse Rate 78 83 82
--- NOTE | 2020-07-14 11:34 | PC.NURSE ---
late entry for 829. pt off unit to ultrasound
--- NOTE | 2020-07-14 11:34 | PC.NURSE ---
Late entry for 929. Pt returned to room
[2020-07-14 11:57] LABS: Glucose Point of Care 219 (65-105)
--- NOTE | 2020-07-14 14:03 | PM.DS ---
DS: Admitting Diagnosis Admitting Diagnosis Admitting Diagnosis: Non ST elevation CA/status post LAD stent DS: Discharge Diagnosis Discharge Diagnosis (1) Hypertension: Code(s): I10 - Essential (primary) hypertension Status: Acute (2) DM2 (diabetes mellitus, type 2): Code(s): E11.9 - Type 2 diabetes mellitus without complications Status: Chronic (3) Acute non-ST elevation myocardial infarction (NSTEMI): Code(s): I21.4 - Non-ST elevation (NSTEMI) myocardial infarction Status: Acute DS: Summary Hospital Course Reason for hospitalization: Sam Betts is a 65 year old male Has a history of having diabetes and hyper lipidemia. The patient has taken himself off his metformin. He has not had any previous history of any coronary artery disease. The patient stated this past Friday he did have some chest discomfort right before bed but he took a couple aspirin and went away on its own. Today he woke up at 5:00 a.m. this morning and felt okay but then he sat down to eat breakfast and developed some left-sided chest pain that radiated down his left arm. He was not able to complete his breakfast and was not of for headache or nauseated at that time. The patient stated that he had sharp pain he has not had any fever chills or shortness of breath. He has not had any exposure to COVID-19. it was noted in the ER records at the patient's heart rate went down to 36 beats per minute he was pale and diaphoretic. The patient was given Zofran and atropine for the symptoms listed above. Patient's heart rate has improved. The patient denies trying any new prescription medications or [id number]-[id number] medication. Patient's troponin 0.165 and 0.135. Cardiology has been consulted. His glucose is 270. EKG was read as sinus bradycardia with a heart rate 57 with a right bundle branch block. An iron review past records and it looks like the right bundle branch block is chronic. Hospital Course: Patient was admitted to the hospital on 07/12/2020 with chest pain. He underwent cardiac catheterization 07/13/2020 by [facility] 100% occlusion of the LAD after 2 small diagonal branches. 40% proximal LAD stenosis with mild luminal irregularities elsewhere. Patient have placement of PCI with a 3 x 26 mm drug-eluting stent with good angiographic results. He had severe left ventricular dysfunction with akinesis and dyskinesis to the mid and distal anterior schmitz, apex and mid distal inferior schmitz with the EF 30%. He had an elevated left ventricular end-diastolic pressure. He had no further chest pain. Did not have any evidence of cardiac arrhythmia on telemetry. Echocardiogram 07/14/2020 demonstrated anterior wall markedly hypodynamic, left ventricular systolic function moderately reduced with EF of 30-35%, mild aortic valve sclerosis. Technically difficult exam from apical protection. Grade 1 diastolic dysfunction. Remain hospitalized for an additional day per monitoring for ventricular arrhythmias given his significantly decreased systolic function. The patient declined to stay in the hospital any longer. The patient's antihypertensives were adjusted his metoprolol was discontinued and he was switched to Coreg. He was also started on losartan 25 mg daily. He was discharged with a prescription for her sublingual nitroglycerin, Brilinta and aspirin. Time Spent with Patient Time attestation: Total time spent providing and/or coordinating discharge services: 40 minutes Time spent: Greater than 30 minutes Exam Narrative: Exam Narrative: PHYSICAL EXAM: WEIGHT 117.7 kg BMI 39.5 General: obese, no acute distress HEENT: head is normocephalic atraumatic, pupils equal and reactive, edentulous Respiratory: clear to auscultation bilaterally, no increased work of breathing Cardiovascular: regular rate, regular rhythm, no murmurs, 2+ bilateral radial and pedal pulses Gastrointestinal: soft, obese, nontender, normoactive bow
--- NOTE | 2020-07-14 15:09 | PC.NURSE ---
All D/C instructions and follow ups reviewed with patient. Pt verbalized understanding. All questions answered at this time. D/C instructions signed
--- NOTE | 2020-07-14 17:41 | ECHO_ITS ---
Patient Info Name: Sam Betts Age: 65 years : 1955 Gender: Male Ht: 68 in Wt: 258 lbs BSA: 2.42 m2 HR: 70 bpm BP: 95 / 54 mmHg Heart Rhythm: Sinus Rhythm Technical Quality: Good Exam Date: 07/14/2020 10:45 AM Exam Location: [facility] Patient Status: Inpatient Admit Date: 07/12/2020 Staff Ordering Physician: Kati Carpio MD Manager Of Planning: Krishan Duarte RDCS Attending Provider: Lyubov Gentile NP Referring Physician: Balaji MOONEY; Exam Type: CA echo dop color flow w con Study Info Indications I21.4 - Non-ST elevation (NSTEMI) myocardial infarction Complete two-dimensional, color flow and Doppler transthoracic echocardiogram is performed with contrast to opacify the left ventricle and to improve the deliniation of the left ventricle endocardial borders. Contrast/Agitated Saline Contrast/Ag. Saline: Definity Amount: 2.00 ml Existing IV Access: Yes History/Risk Factors NSTEMI; DM2, HTN, chest pain. Summary 1. Definity contrast injected to improve visualization. 2. The anterior wall is are markedly hypodynamic. 3. Left ventricular systolic function is moderately reduced, estimated at 30-35%. 4. There is mild aortic valve sclerosis. 5. There is no mitral valve regurgitation. 6. For technically difficult exam from the apical projection. Left Ventricle Left ventricular chamber dimension is mildly enlarged. Left ventricular systolic function is moderately reduced, estimated at 30-35%. The left ventricular diastolic function is grade I diastolic dysfunction. The anterior wall is are markedly hypodynamic. Definity contrast injected to improve visualization. Right Ventricle Right ventricular chamber dimension is normal. Left Atria Left atrial chamber dimension is normal. Right Atria Right atrial chamber dimension is not well visualized. Aortic Valve The aortic valve is trileaflet. There is mild aortic valve sclerosis. Pulmonic Valve The pulmonic valve is not well visualized. Mitral Valve The mitral valve has normal leaflets. There is no mitral valve regurgitation. Tricuspid Valve The tricuspid valve leaflets are not well visualized. Pericardium/Pleural The pericardium appears normal. Aorta The aortic root size at the sinus of Valsalva is normal. Left Ventricular Outflow Tract Name Value Normal LVOT 2D LVOT Diameter 1.96 cm LVOT Doppler LVOT Peak Gradient 4 mmHg LVOT Mean Gradient 2 mmHg LVOT VTI 18.66 cm LVOT VTI/AV VTI Ratio 0.54 LVOT Stroke Volume 56.05 ml LVOT CO 3.80 l/min LVOT CI 1.57 L/min/m2 Mitral Valve Name Value Normal MV Doppler
== END 2020-07-14 15:20 | disposition home or self-care (01) | DRG 247 ==
LOC: ANHED 10:40 → ANHCPC 07-13 05:40 → ANHIMU 07-18 17:07
PROVIDERS: Internal Medicine Cardiovascular Disease; Nurse Practitioner; Specialist; Admitting Provider Internal Medicine; Emergency Provider Emergency Medicine; PCP Family Medicine; Visit Provider Nurse Practitioner
PROC: 4A023N7 Measurement of Cardiac Sampling and Pressure, Left Heart, Percutaneous Approach (ICD-10-PCS; CPT 93452; principal; 2020-07-13 11:30)
PROC: 027034Z Dilation of Coronary Artery, One Artery with Drug-eluting Intraluminal Device, Percutaneous Approach (ICD-10-PCS; 2020-07-13 11:30)
DX: I21.4 Non-ST elevation (NSTEMI) myocardial infarction (principal); I25.10 Atherosclerotic heart disease of native coronary artery without angina pectoris; I10 Essential (primary) hypertension; E11.9 Type 2 diabetes mellitus without complications; M06.9 Rheumatoid arthritis, unspecified; E87.6 Hypokalemia; E78.5 Hyperlipidemia, unspecified; F40.240 Claustrophobia; Z79.899 Other long term (current) drug therapy; Z88.8 Allergy status to other drugs, medicaments and biological substances
CPT/HCPCS: 36415; 71046; 71260; 74177; 76700; 80048; 80053; 80061; 80076; 82465; 82728; 83036; 83690; 83721; 83735; 84443; 84484; 85025; 85610; 85730; 93005; 93458; 96361; 96374; 96375; 99291; A9270; C1725; C1769; C1874; C1887; C1894; C8929; C9113; C9600; J0461; J0583; J1644; J1650; J1815; J2060; J2250; J2405; J3010; J7030; J7040; Q9957; Q9967

== ENCOUNTER 2020-11-09 07:30 | Outpatient (RCR) | payer MEDICARE, SELFPAY ==
[2020-08-22 08:44] VITALS: PULSE 64
--- NOTE | 2020-08-28 08:08 | PCCPR ---
Absent Hero called off due to weather.
--- NOTE | 2020-09-18 08:05 | PCCPR ---
Absent today due to inclement weather.
== END 2020-11-09 15:20 | disposition home or self-care (01) ==
LOC: ANHCPREHAB 07:30
PROVIDERS: PCP Family Medicine; Visit Provider Nurse Practitioner Adult Health
DX: Z95.5 Presence of coronary angioplasty implant and graft (principal)
CPT/HCPCS: 93798

== ENCOUNTER 2021-01-04 09:30 | Outpatient (RCR) | payer MEDICARE, SELFPAY ==
[2021-01-04 09:45] VITALS: BMI 36.0
[2021-01-04 09:46] VITALS: BMI 36.0
== END 2021-03-27 10:24 | disposition home or self-care (01) ==
LOC: ANHDMC 09:30
PROVIDERS: PCP Family Medicine; Visit Provider Family Medicine
DX: E11.59 Type 2 diabetes mellitus with other circulatory complications (principal); Z71.3 Dietary counseling and surveillance
CPT/HCPCS: 97802

== ENCOUNTER → 2021-10-19 13:49 | Outpatient (CLI) | payer MEDICARE, SELFPAY ==
--- NOTE | ~2021-10-19 | XR_ITS ---
[id number] DATE: 10/19/2021 14:01 . INDICATION: Cervical radiculopathy TECHNIQUE: AP, open-mouth, odontoid, lateral and swimmer views COMPARISON: 11/03/2007 cervical spine FINDINGS: C1 and C2 are normally aligned and the odontoid process is intactt. There is moderately severe degenerative disc disease, prominent spurring and mild retrolisthesis at a nd C4-5. Mild degenerative disease at C5-6. And moderate degenerative disc disease at C6-7 There is prominent uncovertebral joint spurring at C4-5 is well. No fracture or dislocation or locked facet or prevertebral soft tissue swelling. IMPRESSION: Prominent degenerative disc disease and uncovertebral joint spurring and mild retrolisthe sis at C4-5 Mild degenerative disc disease at C5-6, moderate at C6-7 Reviewed, dictated and finalized at [facility]. Reviewed, dictated and finalized at [facility]. IMPRESSION: Prominent degenerative disc disease and uncovertebral joint spurrin g and mild retrolisthesis at C4-5 Mild degenerative disc disease at C5-6, moderate at C6-7
== END ==
PROVIDERS: PCP Family Medicine; Visit Provider Family Medicine
DX: M54.12 Radiculopathy, cervical region (principal); M50.321 Other cervical disc degeneration at C4-C5 level
CPT/HCPCS: 72040

== ENCOUNTER 2024-01-22 16:24 | Emergency (ER) | payer MEDICARE, SELFPAY ==
--- NOTE | ~2024-01-22 | XR_ITS ---
XR chest 2V Ordering provider: Cassandra Patterson APRN History: 68 years Male with . hx pneumonia in October; continued cough . Comparison: None. FINDINGS: MEDIASTINUM: The cardiac silhouette is not enlarged. LUNGS: No effusions or pneumothorax. Opacification the left lung base suggestive of atelectasis versu s pneumonia. OTHER: No free air under the diaphragm. Degenerative changes of the spine. IMPRESSION: Left basal atelectasis versus pneumonia. Reviewed, dictated and finalized at location A.
[2024-01-22 16:45] VITALS: BP 133/68; PULSE 68; RESP 18; TEMP 36.9; O2SAT 95
--- NOTE | 2024-01-22 17:32 | ED.URI ---
HPI - URI/Sore Throat General Chief Complaint: Upper Respiratory Infection Stated Complaint: constant cough Time Seen by Provider: 01/22/24 17:03 Source: patient, RN notes reviewed and old records reviewed Mode of arrival: ambulatory Limitations: no limitations History of Present Illness HPI Narrative: 68-year-old male to [facility] for complaint continued cough despite being treated for pneumonia by his PCP since October. patient has been treated with a Z-French, Augmentin, and is now on amoxicillin without improvement. Patient reports that cough became acutely worse today. Patient denies chest pain, difficulty breathing, fever. respirations even and nonlabored. Patient able to speak in complete sentences without difficulty. Patient in no acute distress. Related Data Home Medications Medication Instructions Recorded Confirmed metformin 500 mg tablet,extended 500 mg PO DAILY 05/05/23 01/22/24 release 24 hr Allergies Allergy/AdvReac Type Severity Reaction Status Date / Time codeine Allergy Intermediate HIVES Verified 01/22/24 16:38 lisinopril Allergy Unknown Unknown Verified 01/22/24 16:38 Review of Systems Review of Systems: All systems reviewed & are unremarkable except as noted in HPI and below Constitutional: Constitutional: Reports no additional constitutional complaints Eyes: Eyes: Reports no additional eye complaints ENT: Reports system reviewed and no additional complaints, except as documented Cardiovascular: Cardiovascular: Reports no additional cardiovascular complaints, Denies chest pain and Denies dyspnea Respiratory: Respiratory: Reports no additional respiratory complaints, Reports cough and Denies dyspnea Musculoskeletal: Musculoskeletal: Reports no additional musculoskeletal complaints Neurologic: Reports system reviewed and no additional complaints, except as documented Psychiatric: Psychiatric: Reports no additional psychiatric complaints [facility] Past Medical History Medical History Anxiety Benign positional vertigo Claustrophobia Diabetes mellitus, new onset DM2 (diabetes mellitus, type 2) Hyperlipidemia Hypertension Parotid sialolithiasis Rheumatoid arthritis Surgical History Surgical History H/O colonoscopy with polypectomy S/P tonsillectomy and adenoidectomy Status post cardiac catheterization with stent to LAD 07/13/2020 Family History Family History Father Cerebrovascular accident Mother Congestive heart failure age 97, no history of CAD Hyperlipemia Hypertension Heart attack Social History Social History Social History: the patient lives with his Lupe and she is the durable power trimming caser. The patient is listed as a full code. The patient has 2 biological children and 1 stepchild. He occasionally drinks a your glass in line. 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 he is a lifelong nonsmoker no marijuana or illicit drugs. Smoking status: Never smoker Alcohol intake: current Substance use: never Lack of Transportation: No Lack of Food: Never True Current Housing: I Have Housing Concerned About Future Housing: No Difficulty Paying Gas/Electric Bills: No Difficulty Paying for Meds: No Currently Unemployed: No Education: Bachelor's Degree Difficulty w/ Childcare or Family Care: No Living arrangements: with family Gender identity (if verbalized by the patient): Male Sexual Orientation (if Verbalized by the Patient): Straight or Heterosexual Spiritual care concerns: No Comments At the time of my signature, I reviewed and agree with the nursing past medical, surgical, social, and family history. There is no relevant family history luci
== END 2024-01-22 17:51 | disposition home or self-care (01) ==
PROVIDERS: Emergency Provider Nurse Practitioner Family; PCP Family Medicine
DX: J18.9 Pneumonia, unspecified organism (principal); E11.9 Type 2 diabetes mellitus without complications; Z79.84 Long term (current) use of oral hypoglycemic drugs; E78.5 Hyperlipidemia, unspecified; I10 Essential (primary) hypertension; M06.9 Rheumatoid arthritis, unspecified
CPT/HCPCS: 71046; 99213; G0463

== ENCOUNTER 2024-01-22 18:11 | Emergency (ER) | payer MEDICARE, SELFPAY ==
[2024-01-22 18:14] VITALS: BP 155/64; PULSE 81; RESP 15; TEMP 36.8; O2SAT 95
--- NOTE | 2024-01-22 20:08 | PC.NURSE ---
Pt ambulatory to intake desk to verbalize that he will be leaving and see his pcp in the morning. Pt ambulatory with steady gait to exit. no distress noted.
== END 2024-01-22 20:34 | disposition left against medical advice (07) ==
LOC: ANHED 20:19
PROVIDERS: PCP Family Medicine
DX: J81.1 Chronic pulmonary edema (principal)
CPT/HCPCS: 99199

== ENCOUNTER 2024-01-25 07:11 | Emergency (ER) | payer MEDICARE, SELFPAY ==
[2024-01-25] VITALS (18 sets, daily range): BP systolic 111–137; BP diastolic 48–75; PULSE 63–71; RESP 13–22; TEMP 36.9; O2SAT 94–98
--- NOTE | ~2024-01-25 | XR_ITS ---
EXAMINATION: XR chest 1V portable DATE: 01/25/2024 07:59 INDICATION: Shortness of breath, chest pressure and congestion TECHNIQUE: frontal view of the chest was obtained. COMPARISON: Chest radiograph dated 01/22/2024 FINDINGS: Mild linear discoid atelectasis at the right mid and left lower lung zones. No pulmonary edema, pleur al effusion or pneumothorax. The cardiomediastinal silhouette is normal. IMPRESSION: 1. Mild discoid atelectasis in the right mid and left lower lung zones. Reviewed, dictated and finalized at location A.
--- NOTE | ~2024-01-25 | CT_ITS ---
EXAMINATION: CT diagnostic chest w con DATE: 01/25/2024 09:29 INDICATION: cough and SOB TECHNIQUE: Computed tomography (CT) of the chest was performed with 100 mL Omnipaque-350 intravenous contrast. Additional 3D reconstructions utilizing coronal maximum intensity projection (MIP) were per formed. Automated exposure control and iterative reconstruction technique were employed. The dose-kiki gth product was 375.19 mGy-cm. COMPARISON: None FINDINGS: Diffuse mild bronchial wall thickening with some mucous plugging in the bilateral lower lobes. Mild o pacities at the medial basilar segment of the left lower lobe which demonstrate associated bronchovas cular crowding and which appears predominantly bandlike on the sagittal and coronal imaging most cons istent with atelectasis. Small calcified nodule in the left lower lobe consistent with old granulomat ous disease. Minimal atelectasis along the mildly elevated right hemidiaphragm. Mild cardiomegaly wit h atherosclerotic coronary artery calcific calcifications. Subendocardial fat attenuation at the apic al and periapical segments and along the ventricular septum consistent with chronic infarct in the le ft anterior descending coronary artery vascular distribution. No pericardial effusion. Thoracic aorta is normal in caliber. Multiple mildly prominent but still normal-sized mediastinal lymph nodes which are likely reactive. A few scattered hepatic and splenic calcific a hendrix consistent with old granulo matous disease. 1.3 cm right renal cyst. Mild thoracic spondylosis with bridging osteophytes at multi ple levels consistent with diffuse idiopathic skeletal hyperostosis (DISH). IMPRESSION: 1. Bronchitis with mild bronchial wall thickening in the bilateral lower lobes. 2. Cardiomegaly with coronary artery disease and evidence of prior myocardial infarction in the left anterior descending coronary artery vascular distribution. Reviewed, dictated and finalized at location A. IMPRESSION: 1. Bronchitis with mild bronchial wall thickening in the bilateral lower lobes. 2. Cardiomegaly with coronary artery disease and evidence of prior myocardial i nfarction in the left anterior descending coronary artery vascular distribution .
--- NOTE | 2024-01-25 08:23 | ED.GENADULT ---
HPI - General Adult General Chief complaint: Shortness of Breath/Dyspnea Stated complaint: pneumonia? abx not working Time Seen by Provider: 01/25/24 07:22 History of Present Illness HPI narrative: 68-year-old male presenting to the emergency department for evaluation of cough and congestion. Patient states he has had ongoing symptoms of your eye since November. Patient has been on amoxicillin multiple times. Patient has also been on azithromycin at least once. Patient had worsening symptoms again and had follow-up with his primary care physician, patient was restarted on Levaquin this time. Patient reports last night he had a coughing fit that he feels may have been worsened by the future all inhaler. Related Data Home Medications Medication Instructions Recorded Confirmed metformin 500 mg tablet,extended 500 mg PO DAILY 05/05/23 01/22/24 release 24 hr Allergies Allergy/AdvReac Type Severity Reaction Status Date / Time codeine Allergy Intermediate HIVES Verified 01/25/24 07:11 lisinopril Allergy Unknown Unknown Verified 01/25/24 07:11 Review of Systems Review of Systems: All systems reviewed & are unremarkable except as noted in HPI and below PMFSH Past Medical History Medical History Anxiety Benign positional vertigo Claustrophobia Diabetes mellitus, new onset DM2 (diabetes mellitus, type 2) Hyperlipidemia Hypertension Parotid sialolithiasis Rheumatoid arthritis Surgical History Surgical History H/O colonoscopy with polypectomy S/P tonsillectomy and adenoidectomy Status post cardiac catheterization with stent to LAD 07/13/2020 Family History Family History Father Cerebrovascular accident Mother Congestive heart failure age 97, no history of CAD Hyperlipemia Hypertension Heart attack Social History Social History Social History: the patient lives with his Lupe and she is the durable power transactional attorney. The patient is listed as a full code. The patient has 2 biological children and 1 stepchild. He occasionally drinks a your glass in line. 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 he is a lifelong nonsmoker no marijuana or illicit drugs. Smoking status: Never smoker Alcohol intake: current Substance use: never Lack of Transportation: No Lack of Food: Never True Current Housing: I Have Housing Concerned About Future Housing: No Difficulty Paying Gas/Electric Bills: No Difficulty Paying for Meds: No Currently Unemployed: No Education: Bachelor's Degree Difficulty w/ Childcare or Family Care: No Living arrangements: with family Gender identity (if verbalized by the patient): Male Sexual Orientation (if Verbalized by the Patient): Straight or Heterosexual Spiritual care concerns: No Exam Narrative: APPEARANCE: Well appearing, no pain, no distress, well-nourished. HEAD: normocephalic, atraumatic. EYES: PERRLA/EOMI, conjunctivae clear. NOSE: Normal no drainage EARS:TMS clear with good light reflex. THROAT: Pharynx clear, no exudate. NECK: Supple. No adenopathy, no masses. RESPIRATORY: Airway patent, respirations nonlabored. Clear to auscultation bilaterally, no rales, rhonchi, wheezing. CARDIOVASCULAR: Regular rate and rhythm without murmurs rubs or gallops. ABDOMINAL: Soft, nontender, nondistended, normal bowel sounds MUSCULOSKELETAL: Moves all extremities. Strength/ROM intact, No edema, No calf tenderness. NEURO: Alert. Cranial nerves II through XII intact. Good gait. Good coordination SKIN: Warm, dry. Normal Color Course Course Emergency Course: Patient felt improved treatment, patient was up to the results of his workup patient was comfortable with
[2024-01-25 08:25] LABS: Influenza A QL RT-PCR Negative (Negative); Influenza B QL RT-PCR Negative (Negative); RSV RNA, RT-PCR Negative (Negative); SARS-CoV-2 RNA PCR Negative (Negative)
[2024-01-25 08:54] LABS: Basophils Absolute Auto 0.1 K/mm3 (0.0-0.1); Basophils Percent Auto 0.8 % (0.2-1.2); Eosinophils Percent Auto 13.2 % (0-4.4); Immature Granulocyte Absolute 0.03 K/mm3 (0.00-0.031); Immature Granulocyte Percent A 0.4 % (0-0.5); Lymphocytes Percent Auto 13.3 % (18.3-44.2); Mean Corpuscular HGB Conc 32.7 g/dl (32-36); Mean Corpuscular Hemoglobin 30.5 pg (26-34); Mean Corpuscular Volume 93.3 fl (80-100); Mean Platelet Volume 10.9 fl (7.4-10.4); Monocytes Absolute Auto 0.7 K/mm3 (0.1-0.6); Monocytes Percent Auto 8.9 % (2.6-8.5); Neutrophils Absolute Auto 4.8 K/mm3 (1.3-6.7); Neutrophils Percent Auto 63.4 % (45.5-73.1); Platelet Count Result 190 k/mm3 (150-375); Red Blood Count 5.25 M/mm3 (4.6-6.20); Red Cell Distribution Width 13.4 % (11.5-14.5); White Blood Count 7.5 K/mm3 (4.5-10.0)
--- NOTE | 2024-01-25 08:55 | PC.NURSE ---
patient requesting something for anxiety. provider aware
[2024-01-25] MEDS: LORazepam (*CRX) 1 MG TABLET PO (08:59)
[2024-01-25 09:07] LABS: Alanine Aminotransferase 26 U/L (6-50); Albumin Level 4.6 g/dL (3.5-5.1); Alkaline Phosphatase 66 U/L (38-126); Anion Gap 7 mmol/L (4-12); Aspartate Amino Transferase 36 U/L (17-59); Bilirubin,Total 0.8 mg/dL (0.2-1.3); Blood Urea Nitrogen 20 mg/dL (9-20); Calcium 9.3 mg/dL (8.4-10.2); Carbon Dioxide 28 mmol/L (22-30); Chloride 106 mmol/L (98-107); Estimated CRCL calculation 72 ml/min; Estimated Glomerular Filt Rate > 60; Glucose 128 mg/dL (65-110); Potassium 4.2 mmol/L (3.4-5.0); Sodium 141 mmol/L (137-145)
== END 2024-01-25 09:57 | disposition home or self-care (01) ==
PROVIDERS: Emergency Provider Emergency Medicine; PCP Family Medicine
DX: J18.9 Pneumonia, unspecified organism (principal); Z20.822 Contact with and (suspected) exposure to COVID-19; I10 Essential (primary) hypertension; E78.5 Hyperlipidemia, unspecified; E11.9 Type 2 diabetes mellitus without complications; M06.9 Rheumatoid arthritis, unspecified; Z86.010 Personal history of colon polyps; Z95.5 Presence of coronary angioplasty implant and graft; Z79.84 Long term (current) use of oral hypoglycemic drugs; I25.10 Atherosclerotic heart disease of native coronary artery without angina pectoris; I51.7 Cardiomegaly; J40 Bronchitis, not specified as acute or chronic
CPT/HCPCS: 36415; 71045; 71260; 80053; 85025; 87637; 94664; 99284; A9270; Q9967

== ENCOUNTER 2024-02-17 09:46 | Outpatient (CLI) | payer MEDICARE, SELFPAY ==
--- NOTE | ~2024-02-17 | CT_ITS ---
CT sinus wo con Ordering provider: Porfirio Constantino MD History: . R05.3 - Chronic cough . Comparison: None. Technique: Thin slice Scans CT of the paranasal sinuses was performed with coronal and sagittal refor matted images. No IV contrast. . Automated exposure control and iterative reconstruction technique w ere employed. The dose-length product was 387.90 mGy-cm. Findings: NASAL SEPTUM: Mildly Deviated to the left. OSTEOMEATAL UNITS: Bilaterally obliterated. NASAL TURBINATES AND NASOPHARYNX: Normal. PARANASAL SINUSES: Pansinusitis. VISUALIZED MASTOIDS: Left mastoid air cells effusion. BONES: Normal. SUPERFICIAL SOFT TISSUES/VISUALIZED BRAIN PARENCHYMA: Normal. IMPRESSION: Pansinusitis. Effusion in the left mastoid air cells. Reviewed, dictated and finalized at location A.
== END 2024-02-17 09:47 ==
LOC: GOSHIMG 09:48
PROVIDERS: PCP Family Medicine; Visit Provider Family Medicine
DX: R05.3 Chronic cough (principal); R93.0 Abnormal findings on diagnostic imaging of skull and head, not elsewhere classified
CPT/HCPCS: 70486

== ENCOUNTER 2024-04-09 08:06 | Outpatient (CLI) | payer MEDICARE, SELFPAY ==
--- NOTE | 2024-04-09 13:48 | WPDPFTINT ---
PFT Procedure Performed PFT Procedure Performed Plethysmography (Lung Vol) Diffusing Cap (DLCO) Flow Vol Loop Spirometry w/o Bronchodil PFT Interpretation This is a pulmonary function test with spirometry, plethysmography and diffusing capacity. The test was performed and results interpreted in accordance with the 2019 and 2005 ATS/ERS Task Force guidelines respectively using the Global Lung Function Initiative-2012 reference equations. Patient demonstrated good effort and cooperation. Reproducibility criteria were met. The quality of the spirometry maneuver was Grade B. Findings: Spirometry: The contour the inspiratory and expiratory flow tracing are normal. The FVC is 3.84 L, 96% predicted. The FEV1 is 2.78 L, 92% predicted. The FEV1: FVC ratio 72%. Plethysmography: The total lung capacity is 6.29 L, 95% predicted. The functional residual capacity is 2.85 L, 81% predicted. The residual volume is 2.38 L, 101% predicted. Diffusing capacity: Diffusing capacity unadjusted for hemoglobin and carboxyhemoglobin is 20.3, 80% predicted. The diffusing capacity adjusted for alveolar volume is 4.64, 115% predicted. Impression: The spirometry is normal without evidence of an obstructive abnormality. The lung volumes are normal. The diffusing capacity is normal. There are no prior studies for comparison
== END 2024-04-09 08:07 | disposition home or self-care (01) ==
LOC: ANHPFT 08:08
PROVIDERS: PCP Family Medicine; Visit Provider Internal Medicine Pulmonary Disease
DX: R05.9 Cough, unspecified (principal)
CPT/HCPCS: 94375; 94726; 94729

== ENCOUNTER 2024-10-14 10:12 | Emergency (ER) | payer MEDICARE, SELFPAY ==
--- NOTE | 2024-10-14 10:22 | ED_ITS ---
HPI - Allergic Reaction General Chief complaint: Allergic Reaction Stated complaint: ALLERGIC REACTION Time Seen by Provider: 10/14/24 10:15 Source: patient Mode of arrival: ambulatory Limitations: no limitations History of Present Illness HPI narrative: Patient is a 69-year-old male who presents with swelling to both lips, right- sided face and the feeling of increased labor breathing. Patient states he had a rash to left posterior thigh last night and applied Benadryl cream with resolved symptoms. Patient did not take any of his morning meds. Had yogurt and fruit for breakfast. 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 Reports he failed allergy testing due to control not even reacting. Patient to have repeat testing next week. Patient is able to speak in full sentences and is tolerating secretions. Patient still able take full deep breaths with normal oxygen saturation. Related Data Home Medications ?Medication ?Instructions ?Recorded ?Confirmed ?Last Taken ?Type nitroglycerin 0.4 mg sublingual mg sublingual PRN 05/31/24 09/20/24 Unknown History tablet budesonide 0.25 mg/2 mL suspension 0.25 mg inhalation BID 09/20/24 09/20/24 Unknown History for nebulization fluticasone propionate 93 2 spray intranasal Q12H 09/20/24 09/20/24 Unknown History mcg/actuation breath activated aerosol (Xhance) Allergies Allergy/AdvReac Type Severity Reaction Status Date / Time codeine Allergy Intermediate HIVES Verified 10/14/24 10:28 lisinopril Allergy Unknown Unknown Verified 10/14/24 10:28 sulfamethoxazole (From AdvReac Intermediate skin Verified 10/14/24 10:28 Sulfamethoxazole-Trimethoprim) symptoms trimethoprim (From AdvReac Intermediate skin Verified 10/14/24 10:28 Sulfamethoxazole-Trimethoprim) symptoms Review of Systems Review of Systems: All systems reviewed & are unremarkable except as noted in HPI and below Constitutional: Constitutional: Denies body ache(s), Denies chills, Denies fatigue, Denies fever(s), Denies headache(s), Denies malaise and Denies weakness Eyes: Eyes: Denies blurry vision, Denies irritation and Denies loss of vision ENT: Denies otalgia, Denies headache(s), Reports lip swelling, Denies nasal discharge, Denies sinus pain, Denies sore throat, Reports throat swelling and Denies tongue swelling Cardiovascular: Cardiovascular: Denies chest pain, Denies irregular heart rhythm and Denies dyspnea Respiratory: Respiratory: Denies dyspnea Gastrointestinal: Gastrointestinal: Denies abdominal pain, Denies melena, Denies hematochezia, Denies diarrhea, Denies nausea and Denies vomiting Musculoskeletal: Musculoskeletal: Denies back pain, Denies myalgias and Denies arthralgias Integumentary/Breasts: Skin/Breast: Denies pruritus and Denies rash Neurologic: Denies headache(s), Denies loss of vision and Denies weakness Psychiatric: Psychiatric: Reports no additional psychiatric complaints Endocrine: Endocrine: Denies fatigue PMFSH Past Medical History Medical History Parotid sialolithiasis Benign positional vertigo Anxiety Claustrophobia DM2 (diabetes mellitus, type 2) Rheumatoid arthritis Diabetes mellitus, new onset Hyperlipidemia Hypertension Surgical History Surgical History Status post cardiac catheterization with stent to LAD 07/13/2020 S/P tonsillectomy and adenoidectomy H/O colonoscopy with polypectomy Family History Family History Father Cerebrovascular accident Mother Congestive heart failure age 97, no history of CAD Hyperlipemia Hypertension Heart attack Social History Social History Social History: the patient lives with his Lupe and she is the durable power insurance defense attorney. The patient is listed as a full code. The patient has 2 biological children and 1 stepchild. He occasionally drinks a your glass in line. 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 he is a lifelong nonsmoker no marijuana or illicit drugs. Smoking status: Never smoker Alcohol intake: current Substance use: never Lack of Transportation: No Lack of Food: Never True Current Housing: I Have Housing Concerned About Future Housing: No Difficulty Paying Gas/Electric Bills: No Difficulty Paying for Meds: No Currently Unemployed: No Education: Bachelor's Degree Difficulty w/ Childcare or Family Care: No Living arrangements: with family Gender identity (if verbalized by the patient): Male Sexual Orientation (if Verbalized by the Patient): Straight or Heterosexual Spiritual care concerns: No Comments At time of signature, agree with nursing past medical, surgical, social and family history. There is no relevant family history pertinent to the presenting complaint. Exam Const: General: cooperative, healthy appearing, comfortable, no acute distress and well nourished Nutritional Appearance: well nourished Orientation/consciousness: patient oriented x3 Limitations: no limitations HENMT: Head: normal to inspection, normocephalic and atraumatic Ears: hearing grossly normal bilaterally and external ears normal Face/Nose/Sinus: Normal external nose present, normal facial exam and face symmetric Face and sinus: normal facial exam, face symmetric and edema bilaterally upper lip and lower lip Mouth: Yes Normal oral and palatal mucosa present, Yes tongue normal, No drooling and Yes lip abnormal bilateral swelling Eyes: General: appearance normal, both eyes and all related structures Alignment and Position: alignment normal and position normal Periorbital: p eriorbital findings normal Eyelids: eyelids normal Pupils: Equal, round and reactive pupils present EOM: EOMs intact bilaterally Neck: Neck: normal visual inspection, full ROM and supple Chest: Chest palpation & inspection: normal inspection of the chest Resp: Effort & Inspection: normal respiratory effort and able to speak in complete sentences Auscultation: clear to auscultation bilaterally, no crackles, no rales, no rhonchi and no wheezes Cardio: Rate: regular rate Rhythm: regular rhythm Heart sounds: S1 normal heart sound present and S2 normal heart sound present GI: Inspection: normal to inspection Skin: General skin exam: normal color and no rashes or lesions noted Neuro: General: patient oriented x3 and moves all extremities Cranial nerves: Yes Equal, round and reactive pupils present Speech: normal speech Gait exam (Neuro): Normal gait present Extrem: General: normal to inspection, full ROM and no edema Psych: Appearance: grossly normal and well kempt Mental Status: mental status grossly normal Speech and movement: Normal speech and movement present Affect: normal affect Attitude: cooperative Thought process: Normal thought process present Course Course Emergency Course: Patient being transferred to [facility] for monitoring and further medication management. Patient was given 50 mg of Benadryl, 125 mg of Solu- Medrol and 0.3 mg of epi. Portions of this record may have been created with voice recognition software Level of Care: [facility] Care Visit Vital Signs Vital signs: Reviewed Transfer Transfered to: [facility] Transportation: ALS Transfer rationale: Patient being transferred to [facility] for monitoring and further medication management. Patient was given 50 mg of Benadryl, 125 mg of Solu- Medrol and 0.3 mg of epi. Accepting physician: Dominic CARUSO MDM - Allergic Reaction MDM Narrative Medical decision making narrative: Patient being transferred to [facility] for monitoring and further medication management. IV started. Patient was given 50 mg of Benadryl IV, 125 mg of Solu-Medrol IV and 0.3 mg of epi subq. Patient reports dizziness after medication administration. Patient reports more difficulty breathing than on arrival but is still able to tolerate secretions and speak in complete sentences. Oxygen sats remained 98 throughout time in express care without oxygen therapy. to follow EMS. Differential Diagnosis Differential diagnosis: Likely anaphylaxis, allergic reaction and angioedema Medical Records Attestation: I reviewed the patient's medical records. Discharge Plan Discharge Clinical Impression: Anaphylaxis Qualifiers: Encounter type: initial encounter Qualified Code(s): T78.2XXA - Anaphylactic shock, unspecified, initial encounter Angioedema Qualifiers: Encounter type: initial encounter Qualified Code(s): T78.3XXA - Angioneurotic edema, initial encounter Patient Disposition: Acute Care Hospital Condition: Guarded Prognosis Patient Language: Israeli Prescriptions: No Action nitroglycerin 0.4 mg tablet, sublingual sublingual PRN budesonide 0.25 mg/2 mL suspension for nebulization 0.25 mg inhalation BID Xhance 93 mcg/actuation aerosol breath activated 2 spray intranasal Q12H Rx Instructions: into each nostril mometasone-formoterol 100-5 mcg/actuation HFA aerosol inhaler 1 puff inhalation Q12H Qty: 13 3RF aspirin [Adult Aspirin Regimen] 81 mg tablet,delayed release (DR/EC) 81 mg PO DAILY Qty: 30 11RF benzonatate 100 mg capsule 100 mg PO BID PRN (Reason: cough) Qty: 14 0RF losartan 25 mg tablet 50 mg PO QAM Qty: 90 3RF lorazepam 0.5 mg tablet 0.5 mg PO TID PRN (Reason: anxiety) Qty: 30 0RF carvedilol [Coreg] 6.25 mg tablet 6.25 mg PO Q12HR Qty: 180 1RF rosuvastatin [Crestor] 20 mg tablet 20 mg PO DAILY Qty: 90 1RF Jardiance 25 mg tablet See Rx Instructions .ROUTE .COMPLEX Qty: 90 1RF Dose Instruction: TAKE 1 TABLET BY MOUTH EVERY MORNING Rx Instructions: TAKE 1 TABLET BY MOUTH EVERY MORNING metformin 500 mg tablet extended release 24 hr See Rx Instructions .ROUTE .COMPLEX Qty: 90 0RF Dose Instruction: TAKE 1 TABLET BY MOUTH DAILY -WITH MEALS Rx Instructions: TAKE 1 TABLET BY MOUTH DAILY -WITH MEALS Follow-up/Referrals: Porfirio Constantino MD [Primary Care Provider] -
[2024-10-14 10:24] VITALS: BP 147/71; PULSE 95; RESP 16; TEMP 36.6; O2SAT 95
[2024-10-14] MEDS: methylPREDNISolone SOD SUCC 125 MG VIAL IV PUSH (10:39)
[2024-10-14] MEDS: EPINEPHrine HCL INJ 1 MG/ML AMPUL 0.3 MG SUB-Q (10:39)
[2024-10-14] MEDS: diphenhydrAMINE HCl INJ 50 MG/ML VIAL IV PUSH (10:39)
[2024-10-14 10:42] VITALS: PULSE 72; RESP 18; O2SAT 98
--- NOTE | 2024-10-14 10:55 | PC.NURSE ---
IV SITE WAS ESTABLISHED, PT MEDICATED WITHOUT DIFFICULTY. EMS WAS NOTIFIED FOR TRANSPORT. REPORT WAS GIVEN TO LORRIE HAWKINS AT [facility] AND DR AVILES. AND PT ARE AGREEABLE TO TRANSFER TO ER PER EMS. [facility] NOTIFIED FOR TRANSFER.
== END 2024-10-14 10:42 | disposition short-term general hospital (02) ==
PROVIDERS: Emergency Provider Nurse Practitioner Family; PCP Family Medicine
DX: T78.2XXA Anaphylactic shock, unspecified, initial encounter (principal); E78.5 Hyperlipidemia, unspecified; I10 Essential (primary) hypertension; M06.9 Rheumatoid arthritis, unspecified
CPT/HCPCS: 99215; G0463; J0171; J1200; J2919

== ENCOUNTER 2024-10-14 11:11 | Emergency (ER) | payer MEDICARE, SELFPAY ==
[2024-10-14] VITALS (23 sets, daily range): BP systolic 137–155; BP diastolic 51–79; PULSE 72–80; RESP 16–31; TEMP 36.7; O2SAT 92–99
--- NOTE | ~2024-10-14 | XR_ITS ---
EXAMINATION: XR chest 1V portable DATE: 10/14/2024 13:23 INDICATION: Allergic reaction. TECHNIQUE: A single frontal view of the chest was obtained. COMPARISON: Chest single view 01/25/2024, chest CT 01/25/2024 FINDINGS: There is no pneumonia, pleural effusion, or pneumothorax. The heart size is normal. There i s an old healed right rib fracture. IMPRESSION: 1. No acute cardiopulmonary disease. Reviewed, dictated and finalized at location B.
--- NOTE | 2024-10-14 11:20 | ECG_ITS ---
Test Date: 2024-10-14 11:20:04 Measurements Intervals Alfred Rate: 73 P: 0 LA: 0 QRS: 230 QRSD: 174 T: 189 QT: 423 QTc: 468 Interpretive Statements UNCLEAR UNDERLYING RHYTHM DUE TO BASE LINE ARTIFACT, POSSIBLE SINUS MARKED RIGHT AXIS DEVIATION [QRS AXIS > 100] RIGHT BUNDLE BRANCH BLOCK [120+ ms QRS DURATION, UPRIGHT V1, 40+ ms S IN I/aVL/V4/V5/V6] INFERIOR MYOCARDIAL INFARCTION , OF INDETERMINATE AGE [40+ ms Q WAVE AND/OR ST/T ABNORMALITY IN II/aVF] ANTEROSEPTAL MYOCARDIAL INFARCTION , OF INDETERMINATE AGE [40+ ms Q WAVE IN V1-V4] No previous ECG available for comparison Electronically Signed On 10-15-2024 16:38:30 CDT by Tello Osorio M.D.
[2024-10-14 13:07] LABS: Basophils Percent Auto 0.3 % (0.2-1.2); Eosinophils Absolute Auto 0.1 K/mm3 (0-0.3); Eosinophils Percent Auto 0.4 % (0-4.4); Hematocrit 48.3 % (42.0-52.0); Hemoglobin 15.8 g/dL (14.0-18.0); Immature Granulocyte Absolute 0.06 K/mm3 (0.00-0.031); Immature Granulocyte Percent A 0.4 % (0-0.5); Lymphocytes Absolute Auto 0.86 K/mm3 (0.9-3.2); Lymphocytes Percent Auto 5.8 % (18.3-44.2); Mean Corpuscular HGB Conc 32.7 g/dl (32-36); Mean Corpuscular Hemoglobin 30.3 pg (26-34); Mean Corpuscular Volume 92.5 fl (80-100); Mean Platelet Volume 10.3 fl (7.4-10.4); Monocytes Absolute Auto 0.2 K/mm3 (0.1-0.6); Monocytes Percent Auto 1.3 % (2.6-8.5); Neutrophils Absolute Auto 13.6 K/mm3 (1.3-6.7); Neutrophils Percent Auto 91.8 % (45.5-73.1); Platelet Count Result 206 k/mm3 (150-375); Red Blood Count 5.22 M/mm3 (4.6-6.20); Red Cell Distribution Width 13.5 % (11.5-14.5); White Blood Count 14.8 K/mm3 (4.5-10.0)
--- NOTE | 2024-10-14 13:11 | ED.ALLEREA ---
HPI - Allergic Reaction General Chief complaint: Allergic Reaction Stated complaint: lip swelling Time Seen by Provider: 10/14/24 12:28 History of Present Illness HPI narrative: 69-year-old male with a past medical history including nasal polyps, asthma, type 2 diabetes, hypertension, hyperlipidemia. Patient presents to the emergency department today for suspected anaphylaxis/angioedema. Patient woke up today in his normal state of health, drinks some chamomile tea and then started developing some a anterior lip swelling both top and bottom lip associated with the rash and trouble breathing. He went to urgent care where he received intramuscular epinephrine at about 10:00 a.m. and also received 50 mg of Benadryl and 125 mg of Solu-Medrol through an IV I EMS established. Patient denies any new medications, soaps, clothing or food. Endorses recurrent nasal polyps, does take a baby aspirin daily, has a history of asthma and on review of the EMR shows that he has an allergy to lisinopril any currently takes losartan. Reportedly no history of angioedema in the past. Patient arrives via EMS with improvement in his symptoms. No longer having any wheezing, difficulty in breathing and his lip swelling is decreased. Denies any throat swelling or pain in the back of his throat. No nausea vomiting. Rash has dissipated. No chest pain, abdominal pain, back pain. Patient has an allergy appointment on Friday, failed his last programming development project manager appointment as he was not able to mount an immune response secondary to possibly taking an antihistamine prior to obtaining testing. Related Data Home Medications ?Medication ?Instructions ?Recorded ?Confirmed ?Last Taken ?Type nitroglycerin 0.4 mg sublingual mg sublingual PRN 05/31/24 09/20/24 Unknown History tablet budesonide 0.25 mg/2 mL suspension 0.25 mg inhalation BID 09/20/24 09/20/24 Unknown History for nebulization fluticasone propionate 93 2 spray intranasal Q12H 09/20/24 09/20/24 Unknown History mcg/actuation breath activated aerosol (Xhance) Allergies Allergy/AdvReac Type Severity Reaction Status Date / Time codeine Allergy Intermediate HIVES Verified 10/14/24 11:22 lisinopril Allergy Unknown Unknown Verified 10/14/24 11:22 sulfamethoxazole (From AdvReac Intermediate skin Verified 10/14/24 11:22 Sulfamethoxazole-Trimethoprim) symptoms trimethoprim (From AdvReac Intermediate skin Verified 10/14/24 11:22 Sulfamethoxazole-Trimethoprim) symptoms albuterol AdvReac coughing Verified 10/14/24 11:22 Review of Systems Review of Systems: As reviewed above in [facility] Past Medical History Medical History Parotid sialolithiasis Benign positional vertigo Anxiety Claustrophobia DM2 (diabetes mellitus, type 2) Rheumatoid arthritis Diabetes mellitus, new onset Hyperlipidemia Hypertension Surgical History Surgical History Status post cardiac catheterization with stent to LAD 07/13/2020 S/P tonsillectomy and adenoidectomy H/O colonoscopy with polypectomy Family History Family History Father Cerebrovascular accident Mother Congestive heart failure age 97, no history of CAD Hyperlipemia Hypertension Heart attack Social History Social History Social History: the patient lives with his Lupe and she is the durable power consumer attorney. The patient is listed as a full code. The patient has 2 biological children and 1 stepchild. He occasionally drinks a your glass in line. 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 he is a lifelong nonsmoker no marijuana or illicit drugs. Smoking status: Never smoker Alcohol intake: current Substance use: never Lack of Transportation: No Lack of Food: Never True Current Housing: I Have Housing Concerned About Future Housing: No Difficulty Paying Gas/Electric Bills: No Difficulty Paying for Meds: No Currently Unemployed: No Education: Bachelor's Degree Difficulty w/ Childcare or Family Care: No Living arrangements: with family Gender identity (if verbalized by the patient): Male Sexual Orientation (if Verbalized by the Patient): Straight or Heterosexual Spiritual care concerns: No Exam Narrative: GENERAL: [Well-appearing, well-nourished, and in no acute distress.] HEAD: [Normocephalic, atraumatic.] EYES: [PERRLA and EOMI.] ENT: Anterior lip swelling both top and bottom lip, no base of tongue swelling, no uvular edema, tolerating secretions, no posterior or pharyngeal swelling or erythema. No lymphadenopathy anterior posterior to the neck. But moist mucous membranes, NECK: Supple. CHEST: [Clear to auscultation. No respiratory distress.] HEART: [Regular rate and rhythm]. No murmur heard. [Normal peripheral pulses.] ABDOMEN: [Soft, nondistended], [nontender], [No rigidity or guarding] EXTREMITIES: Normal range of motion. [No edema.] SKIN: Warm, dry, no rash. NEURO: [No focal deficits]. Alert and oriented [x3.] PSYCH: [Normal mood and affect.] Course Vital Signs Vital signs: Vital Signs Temperature 36.7 C 10/14/24 11:15 Pulse Rate 72 10/14/24 11:15 Respiratory Rate 18 10/14/24 11:15 Blood Pressure 153/70 H 10/14/24 11:15 Pulse Oximetry 99 10/14/24 11:15 Oxygen Delivery Room Air 10/14/24 11:15 Temperature 36.7 C 10/14/24 11:15 Pulse Rate 74 10/14/24 13:15 Respiratory Rate 18 10/14/24 13:15 Blood Pressure 143/53 H 10/14/24 13:15 Pulse Oximetry 96 10/14/24 13:15 Oxygen Delivery Room Air 10/14/24 11:33 MDM - Allergic Reaction MDM Narrative Medical decision making narrative: 69-year-old male with a past medical history including nasal polyps, asthma, daily aspirin use. He also has a history of type 2 diabetes, hypertension, hyperlipidemia. Presents to the ER today from EMS after he went to urgent care with signs and symptoms of angioedema/anaphylaxis. He does take losartan and previously was on lisinopril with an unknown allergic reaction likely potential angioedema as well. He does have signs and symptoms of angioedema with anterior lip swelling bottom and top lip but no base of tongue swelling, no secretions intolerance, no uvular edema. Posterior oropharynx is clear. Tolerating secretions in speaking with normal phonation. No difficulty in breathing but reportedly had some shortness of breath and wheezing in the urgent care. He received intramuscular epinephrine, IV Solu-Medrol and 50 mg of IV Benadryl at about 10:00 a.m. presently his symptoms have since significantly improved and now has isolated anterior lip swelling without any of the other symptoms. Differential diagnosis includes angioedema, anaphylaxis, potential losartan reaction, potential aspirin sensitivity given that he already has nasal polyps in asthma so he could have Sampters triad or other disorder. Blood work was obtained including CBC, CMP and he was given a fluid bolus. Chest x-ray obtained. He was placed on jewel hole finish opener and pulse oximetry and monitored for approximately 4 hours to make sure he does not have any rebound anaphylaxis or worsening symptoms. Clinically has improved and his lip swelling has come down significantly. Patient can be safely discharged with epinephrine autoinjector restriction, Pepcid and Benadryl instructions and close outpatient follow-up with his programming development project manager on Friday as well as strict return precautions. We will discontinue temporarily his losartan and aspirin until he can be seen by his programming development project manager for recommendations. Spoke with the family members and the patient at bedside, prescription sent to his pharmacy and he was safely discharged home at this time. Medical Records Attestation: I reviewed the patient's medical records. Lab Data Attestation: I reviewed the patient's lab results. 10/14/24 13:03 10/14/24 13:03 Labs: Lab Results 10/14/24 Range/Units 13:03 WBC 14.8 H (4.5-10.0) K/mm3 RBC 5.22 (4.6-6.20) M/mm3 Hgb 15.8 (14.0-18.0) g/dL Hct 48.3 (42.0-52.0) % MCV 92.5 (80-100) fl MCH 30.3 (26-34) pg MCHC 32.7 (32-36) g/dl RDW 13.5 (11.5-14.5) % Plt Count 206 (150-375) k/mm3 MPV 10.3 (7.4-10.4) fl Immature Gran % (Auto) 0.4 (0-0.5) % Neut % (Auto) 91.8 H (45.5-73.1) % Lymph % (Auto) 5.8 L (18.3-44.2) % Cannon % (Auto) 1.3 L (2.6-8.5) % Eos % (Auto) 0.4 (0-4.4) % Baso % (Auto) 0.3 (0.2-1.2) % Lymph # (Auto) 0.86 L (0.9-3.2) K/mm3 Cannon # (Auto) 0.2 (0.1-0.6) K/mm3 Eos # (Auto) 0.1 (0-0.3) K/mm3 Baso # (Auto) 0.0 (0.0-0.1) K/mm3 Abs Immat Gran (auto) 0.06 H (0.00-0.031) K/mm3 Absolute Neuts (auto) 13.6 H (1.3-6.7) K/mm3 Absolute Nucleated RBC 0.000 (0.0-0.012) K/mm3 Nucleated RBC % 0.0 (0.0-0.2) % Sodium 139 (137-145) mmol/L Potassium 4.3 (3.4-5.0) mmol/L Chloride 104 (98-107) mmol/L Carbon Dioxide 21 L (22-30) mmol/L Anion Gap 14 H (4-12) mmol/L BUN 22 H (9-20) mg/dL Creatinine 0.96 (0.7-1.3) mg/dL Estim Creat Clear Calc 74 ml/min Estimated GFR > 60 (59 - ) Glucose 160 H (65-110) mg/dL Calcium 9.3 (8.4-10.2) mg/dL Total Bilirubin 0.9 (0.2-1.3) mg/dL AST 26 (17-59) U/L ALT 31 (6-50) U/L Alkaline Phosphatase 73 (38-126) U/L Total Protein 7.0 (6.3-8.2) g/dL Albumin 4.5 (3.5-5.1) g/dL Imaging Data Attestation: I personally reviewed and interpreted this imaging study as follows: My impression: Impressions Chest X-Ray 10/14/24 13:27 IMPRESSION: 1. No acute cardiopulmonary disease. Discharge Plan Discharge Clinical Impression: Angioedema, Anaphylaxis Patient Disposition: Home, Self-Care Condition: Stable Instructions: Antibiotic Form, Anaphylaxis (ED), Allergies (ED), Angioedema (ED) Additional Instructions: Your clinical exam and history sound like you could have had anaphylaxis versus angioedema which is allergic reaction. Given your history of asthma and nasal polyps as well as aspirin use we would recommend stopping aspirin and losartan as those are 2 agents that could cause allergic reactions similar to this. Follow-up with your programming development project manager on your appointment Friday and discuss restarting these medications with them. Return to her primary care provider for further recommendations and evaluation as well. We will send you home with epinephrine autoinjector if he develops similar findings or symptoms at home and he can also take diphenhydramine and Pepcid for any allergic symptoms. Return if you have any lip swelling face swelling, difficulty breathing, stridor or wheezing, diffuse hives or any other issues or if you use your epinephrine at home. Patient Language: [place] Prescriptions: New epinephrine [EpiPen 2-French] 0.3 mg/0.3 mL auto-injector 0.3 mg IM ONCE Qty: 2 0RF Rx Instructions: as a single dose; may repeat once No Action nitroglycerin 0.4 mg tablet, sublingual sublingual PRN budesonide 0.25 mg/2 mL suspension for nebulization 0.25 mg inhalation BID Xhance 93 mcg/actuation aerosol breath activated 2 spray intranasal Q12H Rx Instructions: into each nostril mometasone-formoterol 100-5 mcg/actuation HFA aerosol inhaler 1 puff inhalation Q12H Qty: 13 3RF aspirin [Adult Aspirin Regimen] 81 mg tablet,delayed release (DR/EC) 81 mg PO DAILY Qty: 30 11RF benzonatate 100 mg capsule 100 mg PO BID PRN (Reason: cough) Qty: 14 0RF losartan 25 mg tablet 50 mg PO QAM Qty: 90 3RF lorazepam 0.5 mg tablet 0.5 mg PO TID PRN (Reason: anxiety) Qty: 30 0RF carvedilol [Coreg] 6.25 mg tablet 6.25 mg PO Q12HR Qty: 180 1RF rosuvastatin [Crestor] 20 mg tablet 20 mg PO DAILY Qty: 90 1RF Jardiance 25 mg tablet See Rx Instructions .ROUTE .COMPLEX Qty: 90 1RF Dose Instruction: TAKE 1 TABLET BY MOUTH EVERY MORNING Rx Instructions: TAKE 1 TABLET BY MOUTH EVERY MORNING metformin 500 mg tablet extended release 24 hr See Rx Instructions .ROUTE .COMPLEX Qty: 90 0RF Dose Instruction: TAKE 1 TABLET BY MOUTH DAILY -WITH MEALS Rx Instructions: TAKE 1 TABLET BY MOUTH DAILY -WITH MEALS Follow-up/Referrals: Porfirio Constantino MD [Primary Care Provider] - Time of Disposition: 15:00
[2024-10-14] MEDS: LACTATED RINGERS 1,000 ML 999 ML IV CONT (13:18)
[2024-10-14 13:22] LABS: Alanine Aminotransferase 31 U/L (6-50); Albumin Level 4.5 g/dL (3.5-5.1); Alkaline Phosphatase 73 U/L (38-126); Anion Gap 14 mmol/L (4-12); Aspartate Amino Transferase 26 U/L (17-59); Bilirubin,Total 0.9 mg/dL (0.2-1.3); Blood Urea Nitrogen 22 mg/dL (9-20); Calcium 9.3 mg/dL (8.4-10.2); Carbon Dioxide 21 mmol/L (22-30); Chloride 104 mmol/L (98-107); Estimated CRCL calculation 74 ml/min; Estimated Glomerular Filt Rate > 60; Glucose 160 mg/dL (65-110); Potassium 4.3 mmol/L (3.4-5.0); Sodium 139 mmol/L (137-145)
--- OUTSIDE RECORDS SUMMARY | 2024-10-14 14:10 | XMS_ITS | Clinical Summary ---
Author Organization [facility] Address [address] [place] [address] Care Team Providers Care Buncher Machine Name Role Phone Porfirio Constantino MD Primary Care Provider [phone] Allergies No known active allergies Medications metFORMIN (GLUCOPHAGE) 1,000 mg tablet Take 1,000 mg by mouth daily with breakfast. Active diclofenac sodium (VOLTAREN) 75 mg Tablet, Delayed Release (E.C.) Take 75 mg by mouth 2 times daily. Active fluticasone (FLONASE) 50 mcg/spray [place], Suspension Administer 2 Sprays in each nostril 1 time daily as needed for Rhinitis. Active telmisartan (MICARDIS) 40 mg Tablet Take 40 mg by mouth daily. 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 Family History Medical History Relation Name Comments Healthy Brother 1 Healthy Brother 2 Healthy Sister 1 Healthy Sister 2 Relation Name Status Comments Brother 1 Alive Brother 2 Alive Father Mother Alive Sister 1 Alive Sister 2 Alive Social History Tobacco Use Types Packs/Day Years Used Date Smoking Tobacco: Never Alcohol Use Standard Drinks/Week Comments Yes 0 (1 standard drink = 0.6 oz pur e alcohol) rarely Sex and Gender Information Value Date Recorded Sex Assigned at Not on file Legal Sex Male 1:26 PM CDT Gender Identity Not on file Sexual Orientation Not on file Last Filed Vital Signs Vital Sign Reading Time Taken Comments Blood Pressure 134/64 11/01/2016 10:21 AM CDT Pulse 70 11/01/2016 10:21 AM CDT Temperature 36.6 C (97.9 F) 11/01/2016 10:21 AM CDT Respiratory Rate 18 11/01/2016 10:21 AM CDT Oxygen Saturation - - Inhaled Oxygen Concentration - - Weight 103.4 kg (228 lb) 11/01/2016 10:21 AM CDT Height 170.2 cm (5' 7 ) 11/01/2016 10:21 AM CDT Body Mass Index 35.71 11/01/2016 10:21 AM CDT Plan of Treatment Health Maintenance Due Date Last Done Comments DTAP/TDAP/TD VACCINES (1 - Tdap) 1973 COLORECTAL SCREENING 1999 Colorectal Cancer Screening 1999 FIT-DNA Q 3 years 1999 FIT/FOBT Q 1 year 1999 Flex Sig/CT Colonography Q 5 years 1999 PNEUMOCOCCAL VACCINE 50+ YEARS (1 of 1 - PCV) 02/11/20 04 ZOSTER VACCINE (1 of 2) 02/11/2004 INFLUENZA VACCINE (#1) 2024 RSV VACCINE (60+ or ) (1 - 1-dose 75+ series) 2029 Care Teams Buncher Machine Relationship Specialty Start Date End Date Porfirio Constantino MD PCP - General Family Practice 10/15/16
--- OUTSIDE RECORDS SUMMARY | 2024-10-14 14:10 | XMS_ITS | Clinical Summary ---
Author Organization [facility] Address [address] [place] [address] Care Team Providers Care Dobby Looms Pegger Name Role Phone Porfirio Constantino MD Primary Care Provider [phone] Porfirio Constantino MD Unavailable [phone] Allergies Active Allergy Reactions Criticality Noted Date Comments Codeine Cough Low 07/25/2020 Lisinopril Cough Low 10/24/2016 cough Medications Jardiance 25 mg tablet Take 1 tablet (25 mg total) by mouth every morning 1 Active LORazepam (ATIVAN) 0.5 mg tablet Take 1 tablet (0.5 mg total) by mouth 3 (three) times a day as needed for anxiety Active rosuvastatin (CRESTOR) 20 mg tablet Take 1 tablet (20 mg total) by mouth daily 3 Active carvediloL (COREG) 6.25 mg tablet TAKE 1 TABLET BY MOUTH EVERY 12 HOURS 180 tablet 1 3 Active nitroglycerin (NITROSTAT) 0.[address] 1 tablet (0.4 mg total) under the tongue every 5 (five) minutes as needed for chest pain 1 tablet may be used every 5 minutes as needed, for up to 15 minutes. Do not take more than 3 tablets in 15 minutes. To prevent angina. 25 tablet 3 4 Active losartan (COZAAR) 50 mg tabletIndications: Ischemic cardiomyopathy TAKE 1 TABLET BY MOUTH EVERY DAY 90 tablet 3 4 Active aspirin 81 mg enteric coated tablet TAKE 1 TABLET BY MOUTH EVERY DAY 90 tablet 3 4 Active benzonatate (TESSALON) 200 mg capsule TAKE 1 CAPSULE BY MOUTH 3 TIMES A DAY NEEDED FOR COUGH 4 Active doxycycline monohydrate (MONODOX) 100 mg capsule Take 1 capsule (100 mg total) by mouth 2 (two) times a day 4 Active metFORMIN XR (GLUCOPHAGE XR) 500 mg 24 hr tablet Take 1 tablet (500 mg total) by mouth daily with breakfast 4 Active Dulera 100-5 mcg/actuation inhaler Inhale 1 puff every 12 (twelve) hours 4 Active Active Problems Problem Noted Date Diagnosed Date Nonrheumatic aortic valve stenosis 11/18/2023 History of coronary artery stent placement 10/31 Coronary artery disease invo lving [place] coronary artery of [place] heart without angina pectoris 08/21/2020 Ischemic cardiomyopathy 08/21/2020 Encounters Date Type Department Care Team Description 07/21/2024 9:30 AM BAR MANAGER Office Visit [facility] Medical [facility] Cardiology [address] [place] [address] Kiah Major NP Coronary artery disease involving [place] coronary artery of [place] heart without angina pectoris (Primary Dx); Nonrheumatic aortic valve stenosis; Ischemic cardiomyopathy from Last 3 Months Medical History Medical History Date Comments Hypertension Heart attack (HCC) H/O angioplasty Obesity Hyperlipidemia Arthritis Family History Medical History Relation Name Comments Stroke Father Heart disease Mother Relation Name Status Comments Brother Alive Father (Age 67) Mother (Age 97) Sister Alive Social History Tobacco Use Types Packs/Day Years Used Date Smoking Tobacco: Never Smokeless Tobacco: Never Tobacco Cessation:Counseling Given: Not Answered Alcohol Use Standard Drinks/Week Comments Not Currently 0 (1 standard drink = 0.6 oz pur e alcohol) Sex and Gender Information Value Date Recorded Sex Assigned at Not on file Legal Sex Male 1:56 AM BAR MANAGER Gender Identity Not on file Sexual Orientation Not on file Obstetrics History Last Filed Vital Signs Vital Sign Reading Time Taken Comments Blood Pressure 132/66 07/21/2024 9:37 AM BAR MANAGER Pulse 62 07/21/2024 9:37 AM BAR MANAGER Temperature 36.9 C (98.4 F) 10/26/2020 12:49 PM CDT Respiratory Rate - - Oxygen Saturation 94% 07/21/2024 9:37 AM BAR MANAGER Inhaled Oxygen Concentration - - Weight 105.2 kg (232 lb) 07/21/2024 9:37 AM BAR MANAGER Height 172.7 cm (5' 8 ) 07/21/2024 9:37 AM BAR MANAGER Body Mass Index 35.28 07/21/2024 9:37 AM BAR MANAGER Plan of Treatment Health Maintenance Due Date Last Done Comments Colon Cancer Screening-Colonoscopy 1954 Depression Screening 1954 Fall Risk Assessment 1954 Hepatitis C Screening 1954 DTaP/Tdap/Td Vaccine (1 - Tdap) 1965 Hepatitis B Screening 02/11/1972 Pneumococcal vaccine 65+ (1 of 2 - PCV) 1973 Zoster Vaccine (1 of 2) 02/11/2004 Well Visit 65+ 2019 Influenza Vaccine (#1) 2024 05/05/2020, 2018 Insurance [employer] [facility] Address: [facility] [address] [place] [address] [employer] [facility] Address: [facility] [address] [place] [address] Care Teams Dobby Looms Pegger Relationship Specialty Start Date End Date Porfirio Constantino MD PCP - General Family Medicine 07/14/20 Porfirio Constantino MD 07/14/20
--- OUTSIDE RECORDS SUMMARY | 2024-10-14 14:10 | XMS_ITS | Referral Summary ---
Author Organization [facility] Address [address] [place] [address] Care Team Providers Care Mannequin Coloring Artist Name Role Phone Porfirio Constantino MD Primary Care Provider [phone] Porfirio Constantino MD Unavailable [phone] Encounters Date Type Department Care Team Description 07/21/2024 9:30 AM CHIEF OF PRODUCTION Office Visit [facility] Medical [facility] Cardiology [address] [facility] [address] [place] [address] Kiah Major NP Coronary artery disease involving [place] coronary artery of [place] heart without angina pectoris (Primary Dx); Nonrheumatic aortic valve stenosis; Ischemic cardiomyopathy from Last 3 Months Allergies Active Allergy Reactions Criticality Noted Date [...] placement 10/31 Coronary artery disease invo lving [place] coronary artery of [place] heart without angina pectoris 08/21/2020 Ischemic cardiomyopathy 08/21/2020 Social History Tobacco Use Types Packs/Day Years Used Date Smoking Tobacco: Never Smokeless Tobacco: Never Tobacco Cessation:Counseling Given: Not Answered Alcohol Use Standard Drinks/Week Comments Not Currently 0 (1 standard drink = 0.6 oz pur e alcohol) Sex and Gender Information Value Date Recorded Sex Assigned at Not on file Legal Sex Male 1:56 AM CHIEF OF PRODUCTION Gender Identity Not on file Sexual Orientation Not on file Last Filed Vital Signs Vital Sign Reading Time Taken Comments Blood Pressure 132/66 07/21/2024 9:37 AM CHIEF OF PRODUCTION Pulse 62 07/21/2024 9:37 AM CHIEF OF PRODUCTION Temperature 36.9 C (98.4 F) 10/26/2020 12:49 PM CDT Respiratory Rate - - Oxygen Saturation 94% 07/21/2024 9:37 AM CHIEF OF PRODUCTION Inhaled Oxygen Concentration - - Weight 105.2 kg (232 lb) 07/21/2024 9:37 AM CHIEF OF PRODUCTION Height 172.7 cm (5' 8 ) 07/21/2024 9:37 AM CHIEF OF PRODUCTION Body Mass Index 35.28 07/21/2024 9:37 AM CHIEF OF PRODUCTION Plan of Treatment Not on file Insurance [employer] Member Subscriber Plan / Payer ( fective 2022-Present) Name:Artemio RolandjoiHeroSam Relation to Subscriber:Self Name:Artemio WatkinsjoiSam Payer ID:[id number] (NAIC) Type:[facility] MED[facility] Address: [place] [id number] [employer] Member Subscriber Plan / Payer ( fective 2022-Present) Name:Artemio Willoughby Sam Relation to Subscriber:Self Name:Artemio WatkinsjoiSam Payer ID:[id number] (NAIC) Type:[facility] MEDICARE Address: [place] [phone] Care Teams Mannequin Coloring Artist Relationship Specialty Start Date End Date Porfirio Constantino MD PCP - General Family Medicine 07/14/20 Porfirio Constantino MD 07/14/20
--- OUTSIDE RECORDS SUMMARY | 2024-10-14 14:10 | XMS_ITS | Referral Summary ---
Author Organization [facility] [employer] [facility] [employer] [place] Address [address] [place] [address] Care Team Providers Care It Architecture Analyst Name Role Phone Porfirio Constantino MD Primary Care Provider [phone] Source Comments [facility],non-owned Affiliates and Associated Physician Practices is amultiple site organization consisting of ambulatory clinics and hospital sitesin [place], [place], [place] and [place]. This disclosure is being madepursuant to the Care Everywhere program and may not contain all information available regarding this patient. Last updated 18.[facility] [employer] [place] Allergies Active Allergy Reactions Criticality Noted Date Comments Lisinopril Other Low 10/24/2016 cough Medications * Be aware that medications may not be up to date on this document. Alwaysverify current medications with the patient. Medication Sig Dispensed Refills Start Date End Date Status metFORMIN (GLUCOPHAGE) 1000 MG tablet Take 1,000 mg by mouth 09/13/2016 Active telmisartan (MICARDIS) 40 MG tablet Take 40 mg by mouth 09/13/2016 Active vitamin D3 (CHOLECACIFEROL) 5000 UNITS Active aspirin (ASPIRIN) 81 MG tablet Take 81 mg by mouth Active leflunomide (ARAVA) 20 MG tablet Take 20 mg by mouth 09/15/2017 Active predniSONE (DELTASONE) 1 MG tablet Take 4 mg by mouth 10/28/2017 Active Cyanocobalamin (VITAMIN B 12 PO) Active diclofenac sodium EC (VOLTAREN) 50 MG tablet Take 1 tablet in the morning, 1 tablet mid-day, and 2 tablets by mouth at night. 120 tablet 06/19/2018 Active Active Problems Problem Noted Date Diagnosed Date Encounter for therapeutic drug monitoring 2017 Polyarthritis 07/24/2018 Social History Tobacco Use Types Packs/Day Years Used Date Smoking Tobacco: Never Assessed Sex and Gender Information Value Date Recorded Sex Assigned at Not on file Gender Identity Not on file Sexual Orientation Not on file Last Filed Vital Signs Vital Sign Reading Time Taken Comments Blood Pressure 138/78 09/15/2017 1:36 PM SETUP OPERATOR Pulse 74 05/12/2017 1:36 PM CDT Temperature 36.9 C (98.5 F) 09/15/2017 1:36 PM SETUP OPERATOR Respiratory Rate 16 05/12/2017 1:36 PM CDT Oxygen Saturation - - Inhaled Oxygen Concentration - - Weight 112.9 kg (249 lb) 09/15/2017 1:36 PM SETUP OPERATOR Height 171.5 cm (5' 7.5 ) 09/15/2017 1:36 PM SETUP OPERATOR Body Mass Index 38.42 09/15/2017 1:36 PM SETUP OPERATOR Plan of Treatment Not on file Procedures Procedure Name Priority Date/Time Associated Diagnosis Comments HEPATITIS C AB W/RFLX TO HCV RNA QN PCR Routine 10/25/2016 12:00 AM CDT from Last 3 Months or Most Recently Relevant to Health Maintenance Results * HEPATITIS C AB W/RFLX TO HCV RNA QN PCR (10/25/2016 12:00 AM CDT) Hepatitis C Antibody 0.2 0.0 - 0.9 s/co ratio [facility] 10/25/2016 10/25/2016 Narrative [facility] - 10/26/2016 9:13 AM CDT Performed at: - Lab[address] [id number] Ladle Repairer: Fransisco Graham PhD, Phone: [phone] Jose F Velazquez MD LAB - CHEMISTRY [facility]) from Last 3 Months or Most Recently Relevant to Health Maintenance Care Teams It Architecture Analyst Relationship Specialty Start Date End Date Porfirio Constantino MD [address] [place] [id number] [facility] - General 11/26/17
--- OUTSIDE RECORDS SUMMARY | 2024-10-14 14:10 | XMS_ITS | Patient Health Summary ---
Author Organization [facility] Address [address] [place] [address] Care Team Providers Care Residential Manager Name Role Phone Porfirio Constantino MD Primary Care Provider [phone] Note from [facility],non-owned Affiliates and Associated Physician Practices is amultiple site organization consisting of ambulatory clinics and hospital sitesin [place], [place] and [place]. This disclosure is being madepursuant to the Care Everywhere program and may not contain all information available regarding this patient. Last updated 18.[facility] Allergies * Lisinopril(Other) -Low Criticality Medications * Be aware that medications may not be up to date on this document. Alwaysverify current medications with the patient. * metFORMIN (GLUCOPHAGE) 1000 MG tablet(Started 09/13/2016) Take 1,000 mg by mouth * telmisartan (MICARDIS) 40 MG tablet(Started 09/13/2016) Take 40 mg by mouth * vitamin D3 (CHOLECACIFEROL) 5000 UNITS * aspirin (ASPIRIN) 81 MG tablet Take 81 mg by mouth * leflunomide (ARAVA) 20 MG tablet(Started 09/15/2017) Take 20 mg by mouth * predniSONE (DELTASONE) 1 MG tablet(Started 10/28/2017) Take 4 mg by mouth * Cyanocobalamin (VITAMIN B 12 PO) * diclofenac sodium EC (VOLTAREN) 50 MG tablet(Started 06/19/2018) Take 1 tablet in the morning, 1 tablet mid-day, and 2 tablets by mouth at night. Active Problems Problem Noted Date Diagnosed Date [...] Comments Blood Pressure 138/78 09/15/2017 1:36 PM [employer] Pulse 74 05/12/2017 1:36 PM CDT Temperature 36.9 C (98.5 F) 09/15/2017 1:36 PM [employer] Respiratory Rate 16 05/12/2017 1:36 PM CDT Oxygen Saturation - - Inhaled Oxygen Concentration - - Weight 112.9 kg (249 lb) 09/15/2017 1:36 PM [employer] Height 171.5 cm (5' 7.5 ) 09/15/2017 1:36 PM [employer] Body Mass Index 38.42 09/15/2017 1:36 PM [employer] Procedures * URINALYSIS MICROSCOPIC ONLY REFLEXED(Performed 08/12/2018) Performed for Polyarthritis, Encounter for therapeutic drug monitoring * URINALYSIS W/MICROSCOPIC REFLEX TO CULTURE(Performed 08/12/2018) Performed for Polyarthritis, Encounter for therapeutic drug monitoring * ERYTHROCYTE SEDIMENTATION RATE(Performed 08/12/2018) Performed for Polyarthritis, Encounter for therapeutic drug monitoring * C-REACTIVE PROTEIN(Performed 08/12/2018) Performed for Polyarthritis, Encounter for therapeutic drug monitoring * COMPREHENSIVE METABOLIC PANEL(Performed 08/12/2018) Performed for Polyarthritis, Encounter for therapeutic drug monitoring * CBC W AUTO DIFFERENTIAL(Performed 08/12/2018) Performed for Polyarthritis, Encounter for therapeutic drug monitoring * ERYTHROCYTE SEDIMENTATION RATE(Performed 12/23/2017) * URINALYSIS REFLEX TO MICROSCOPIC NO CULTURE(Performed 12/23/2017) * COMPREHENSIVE METABOLIC PANEL(Performed 12/23/2017) * C-REACTIVE PROTEIN(Performed 12/23/2017) * FERRITIN(Performed 12/23/2017) * CBC W AUTO DIFFERENTIAL(Performed 12/23/2017) * C-REACTIVE PROTEIN(Performed 09/09/2017) * FERRITIN(Performed 09/09/2017) * COMPREHENSIVE METABOLIC PANEL(Performed 09/09/2017) * CBC W AUTO DIFFERENTIAL(Performed 09/09/2017) * ERYTHROCYTE SEDIMENTATION RATE(Performed 09/09/2017) * URINALYSIS REFLEX TO MICROSCOPIC NO CULTURE(Performed 09/09/2017) * C-REACTIVE PROTEIN(Performed 07/14/2017) * COMPREHENSIVE METABOLIC PANEL(Performed 07/14/2017) * CBC W AUTO DIFFERENTIAL(Performed 07/14/2017) * ERYTHROCYTE SEDIMENTATION RATE(Performed 07/14/2017) * URINALYSIS REFLEX TO MICROSCOPIC NO CULTURE(Performed 07/14/2017) * FERRITIN(Performed 07/14/2017) * FERRITIN(Performed 06/10/2017) * COMPREHENSIVE METABOLIC PANEL(Performed 06/10/2017) * CBC W AUTO DIFFERENTIAL(Performed 06/10/2017) * ERYTHROCYTE SEDIMENTATION RATE(Performed 06/10/2017) * C-REACTIVE PROTEIN(Performed 06/10/2017) * URINALYSIS REFLEX TO MICROSCOPIC NO CULTURE(Performed 06/10/2017) * ERYTHROCYTE SEDIMENTATION RATE(Performed 04/22/2017) * URINALYSIS REFLEX TO MICROSCOPIC NO CULTURE(Performed 04/22/2017) * COMPREHENSIVE METABOLIC PANEL(Performed 03/18/2017) * CBC W AUTO DIFFERENTIAL(Performed 03/18/2017) * ERYTHROCYTE SEDIMENTATION RATE(Performed 03/18/2017) * C-REACTIVE PROTEIN(Performed 03/18/2017) * URINALYSIS REFLEX TO MICROSCOPIC NO CULTURE(Performed 03/18/2017) * C-REACTIVE PROTEIN(Performed 02/13/2017) * URINALYSIS REFLEX TO MICROSCOPIC NO CULTURE(Performed 02/13/2017) * SACCHAROMYCES ANTIBODY (ASCA) IGG/IGA PANEL(Performed 02/13/2017) * COMPREHENSIVE METABOLIC PANEL(Performed 02/13/2017) * CBC W AUTO DIFFERENTIAL(Performed 02/13/2017) * ERYTHROCYTE SEDIMENTATION RATE(Performed 02/13/2017) * C-REACTIVE PROTEIN(Performed 01/14/2017) * ERYTHROCYTE SEDIMENTATION RATE(Performed 01/14/2017) * CK BLOOD(Performed 01/14/2017) * COMPREHENSIVE METABOLIC PANEL(Performed 01/14/2017) * ALDOLASE(Performed 01/14/2017) * FERRITIN(Performed 01/14/2017) * CHLAMYDIA ANTIBODY IGG PANEL(Performed 12/24/2016) * ERYTHROCYTE SEDIMENTATION RATE(Performed 12/24/2016) * C-REACTIVE PROTEIN(Performed 12/24/2016) * COMPREHENSIVE METABOLIC PANEL(Performed 12/24/2016) * FERRITIN(Performed 12/24/2016) * CBC W AUTO DIFFERENTIAL(Performed 12/24/2016) * CHLAMYDIA + GC + TRICH DNA AMPL(Performed 12/24/2016) * COMPLEMENT TOTAL(Performed 10/25/2016) * COMPLEMENT C4(Performed 10/25/2016) * COMPLEMENT C3(Performed 10/25/2016) * CYCLIC CITRULLINATED PEPTIDE(CCP) AB IGG(Performed 10/25/2016) * JOSE W/REFLEX IFA PATTERN(Performed 10/25/2016) * HISTONE ANTIBODY(Performed 10/25/2016) * RHEUMATOID FACTOR BLOOD QUANTITATIVE(Performed 10/25/2016) * BELL ATTENDANT ANTIBODY(Performed 10/25/2016) * SS-A/SS-B (SJOGREN'S) ANTIBODY PANEL(Performed 10/25/2016) * TISSUE TRANSGLUTAMINASE AB IGG(Performed 10/25/2016) * TISSUE TRANSGLUTAMINASE AB IGA(Performed 10/25/2016) * DNA ANTIBODY DS CRITHIDIA IFA(Performed 10/25/2016) * COMPREHENSIVE METABOLIC PANEL(Performed 10/25/2016) * CBC W AUTO DIFFERENTIAL(Performed 10/25/2016) * ALDOLASE(Performed 10/25/2016) * HLA TYPING B27(Performed 10/25/2016) * IMMUNOGLOBULINS IGG/IGM/IGA PANEL(Performed 10/25/2016) * GARCIA (SM) ANTIBODY FRANSICO(Performed 10/25/2016) * HEPATITIS B SURFACE ANTIBODY(Performed 10/25/2016) * HEPATITIS B SURFACE ANTIGEN W RFLX CONFIRMATION(Performed 10/25/2016) * HEPATITIS B CORE ANTIBODY TOTAL(Performed 10/25/2016) * FERRITIN(Performed 10/25/2016) * CK BLOOD(Performed 10/25/2016) * C-REACTIVE PROTEIN(Performed 10/25/2016) * LDH BLOOD(Performed 10/25/2016) * RPR W REFLEX CONFIRM(Performed 10/25/2016) * ERYTHROCYTE SEDIMENTATION RATE(Performed 10/25/2016) * TSH(Performed 10/25/2016) * URINALYSIS W/MICROSCOPIC REFLEX TO CULTURE(Performed 10/25/2016) * VITAMIN D 25-HYDROXY(Performed 10/25/2016) * ROCHELLE-BALLESTEROS VIRUS ANTIBODY PANEL(Performed 10/25/2016) * PARVOVIRUS B19 IGG/IGM AB PANEL(Performed 10/25/2016) * CYTOMEGALOVIRUS ANTIBODY IGG/IGM BLOOD(Performed 10/25/2016) * LYME DISEASE IGG/IGM PANEL WB/IMMUNOBLOT(Performed 10/25/2016) * URINALYSIS MICROSCOPIC ONLY REFLEXED(Performed 10/25/2016) * EHRLICHIA CHAFFEENSIS PCR(Performed 10/25/2016) * HEPATITIS C AB W/RFLX TO HCV RNA QN PCR(Performed 10/25/2016) * HEPATITIS C AB W/RFLX TO HCV RNA QN PCR(Performed 10/25/2016) Results * URINALYSIS MICROSCOPIC ONLY REFLEXED (08/12/2018 7:37 AM [employer]) Only the most recent of2 resultswithin the time period is included. WBC UA 0-5 0 - 5 /hpf [facility] INSURANCE BILL RBC UA 0-2 0 - 2 /hpf [facility] INSURANCE BILL Epithelial Cells (non renal) 0-10 0 - 10 /hpf [facility] INSURANCE BILL Epithelial Cells (renal) NOT NEEDED [facility] INSURANCE BILL Comment:Ancillary determined the test is not needed Casts ua NOT NEEDED [facility] INSURANCE BILL Comment:Ancillary determined the test is not needed Casts UA NOT NEEDED [facility] INSURANCE BILL Comment:Ancillary determined the test is not needed Crystals UA NOT NEEDED [facility] INSURANCE BILL Comment:Ancillary determined the test is not needed Crystals UA NOT NEEDED [facility] INSURANCE BILL Comment:Ancillary determined the test is not needed Mucus UA Present Not Estab. [facility] INSURANCE BILL Bacteria UA None seen None seen/Few [facility] INSURANCE BILL Yeast UA NOT NEEDED [facility] INSURANCE BILL Comment:Ancillary determined the test is not needed Trichomonas UA NOT NEEDED [facility] INSURANCE BILL Comment:Ancillary determined the test is not needed Comment Urine NOT NEEDED [facility] INSURANCE BILL Comment: FASTING Ancillary determined the test is not needed 08/12/2018 7:37 AM [employer] 08/12/2018 Narrative Resulting Agency Comment [facility] [address] [phone] Jose F Velazquez MD LAB - URINALYSIS ORD ERABLES [facility] INSURANCE BILL [address] [place] [address] * URINALYSIS W/MICROSCOPIC REFLEX TO CULTURE (08/12/2018 7:37 AM [employer]) Only the most recent of2 resultswithin the time period is included. Specific Stafford UA 1.017 1.005 - 1.030 [facility] INSURANCE BILL pH UA 5.5 5.0 - 7.5 [facility] INSURANCE BILL Color UA Yellow Yellow [facility] INSURANCE BILL Appearance Clear Clear [facility] INSURANCE BILL Leukocyte UA Negative Negative [facility] INSURANCE BILL Protein UA Negative Negative/Tra ce [facility] INSURANCE BILL Glucose UA Negative Negative [facility] INSURANCE BILL Ketone UA Negative Negative [facility] INSURANCE BILL Occult Blood Urine Negative Negative [facility] INSURANCE BILL Bilirubin UA Negative Negative [facility] INSURANCE BILL Urobilinogen 0.2 0.2 - 1.0 mg/dL [facility] INSURANCE BILL Nitrite UA Negative Negative [facility] INSURANCE BILL Microscopic Examination Urine [facility] INSURANCE BILL Comment:Microscopic follows if indicated. Microscopic Examination Urine See below: [facility] INSURANCE BILL Comment: Microscopic was indicated and was performed. FASTING Urinalysis Reflex [facility] INSURANCE BILL Comment: This specimen will not reflex to a Urine Culture. FASTING Urine URINE SPECIMEN OBTAINED BY CLEAN CATCH PROCEDURE / Unknown 08/12/2018 7:37 AM [employer] 08/12/2018 Narrative Resulting Agency Comment [facility] [address] [facility] [id number] Jose F Velazquez MD LAB - URINALYSIS ORD ERABLES Performing Organization Address City/[facility] Co de Phone Number [facility] INSURANCE BILL [address] [place] [address] * C-REACTIVE PROTEIN (08/12/2018 7:37 AM [employer]) Only the most recent of10 resultswithin the time period is included. C-Reactive Protein 2.0 0.0 - 4.9 mg/L [facility] INSURANCE BILL Comment:FASTING Blood BLOOD SPECIMEN / Unknown 08/12/2018 7:37 AM [employer] 08/12/2018 Narrative Resulting Agency Comment [facility] [address] [facility] [address] [phone] Jose F Velazquez MD LAB - CHEMISTRY ORDE RABLES Performing Organization Address City/[facility] Co de Phone Number [facility] INSURANCE BILL [address] [place] [address] * ERYTHROCYTE SEDIMENTATION RATE (08/12/2018 7:37 AM [employer]) Only the most recent of11 resultswithin the time period is included. Erythrocyte Sedimentation Rate Westergren 3 0 - 30 mm/hr [facility] INSURANCE BILL Comment:FASTING Blood BLOOD SPECIMEN / Unknown 08/12/2018 7:37 AM [employer] 08/12/2018 Narrative Resulting Agency Comment [facility] [address] [facility] [phone] Jose F Velazquez MD LAB - HEMATOLOGY ORD ERABLES [facility] INSURANCE BILL [address] [place] [address] * CBC WITH DIFFERENTIAL (08/12/2018 7:37 AM [employer]) Only the most recent of9 resultswithin the time period is included. Pathologist [facility] WBC 5.4 3.4 - 10.8 x10E3/uL [facility] INSURANCE BILL RBC 4.86 4.14 - 5.80 x10E6/uL [facility] INSURANCE BILL Hemoglobin 14.3 13.0 - 17.7 g/dL [facility] INSURANCE BILL Hematocrit 43.2 37.5 - 51.0 % [facility] INSURANCE BILL MCV 89 79 - 97 fL [facility] INSURANCE BILL MCH 29.4 26.6 - 33.0 pg [facility] INSURANCE BILL MCHC 33.1 31.5 - 35.7 g/dL [facility] INSURANCE BILL RDW 13.9 12.3 - 15.4 % [facility] INSURANCE BILL Platelet Count 195 150 - 379 x10E3/uL [facility] INSURANCE BILL Granulocytes % 57 Not Estab. % [facility] INSURANCE BILL Lymphocytes % 28 Not Estab. % [facility] INSURANCE BILL Monocytes % 9 Not Estab. % [facility] INSURANCE BILL Eosinophils % 5 Not Estab. % [facility] INSURANCE BILL Basophils % 1 Not Estab. % [facility] INSURANCE BILL Immature Cells NOT NEEDED [facility] INSURANCE BILL Comment:Ancillary determined the test is not needed Granulocytes Absolute 3.1 1.4 - 7.0 x10E3/uL [facility] INSURANCE BILL Lymphocytes Absolute 1.5 0.7 - 3.1 x10E3/uL [facility] INSURANCE BILL Monocytes Absolute 0.5 0.1 - 0.9 x10E3/uL [facility] INSURANCE BILL Eosinophils Absolute 0.3 0.0 - 0.4 x10E3/uL [facility] INSURANCE BILL Basophils Absolute 0.0 0.0 - 0.2 x10E3/uL [facility] INSURANCE BILL Immature Granulocytes 0 Not Estab. % [facility] INSURANCE BILL Immature Granulocytes Absolute 0.0 0.0 - 0.1 x10E3/uL [facility] INSURANCE BILL nRBC NOT NEEDED [facility] INSURANCE BILL Comment:Ancillary determined the test is not needed Comment Hematology NOT NEEDED [facility] INSURANCE BILL Comment: FASTING Ancillary determined the test is not needed Blood BLOOD SPECIMEN / Unknown 08/12/2018 7:37 AM [employer] 08/12/2018 Narrative Resulting Agency Comment [facility] [address] [facility] [phone] Jose F Velaqzuez MD LAB - HEMATOLOGY ORD ERABLES [facility] INSURANCE BILL [address] [place] [address] * (ABNORMAL) COMPREHENSIVE METABOLIC PANEL (08/12/2018 7:37 AM [employer]) Only the most recent of10 resultswithin the time period is included. Glucose 146(H) 65 - 99 mg/dL [facility] INSURANCE BILL BUN 18 8 - 27 mg/dL [facility] INSURANCE BILL Creatinine 1.01 0.76 - 1.27 mg/dL [facility] INSURANCE BILL eGFR by MDRD 78 >59 mL/min/1.7 3 [facility] INSURANCE BILL eGFR by MDRD 90 >59 mL/min/1.7 3 [facility] INSURANCE BILL BUN/Creatinine Ratio 18 10 - 24 [facility] INSURANCE BILL Sodium 143 134 - 144 mmol/L [facility] INSURANCE BILL Potassium 4.5 3.5 - 5.2 mmol/L [facility] INSURANCE BILL Chloride 104 96 - 106 mmol/L [facility] INSURANCE BILL CO2 26 20 - 29 mmol/L [facility] INSURANCE BILL Calcium 9.1 8.6 - 10.2 mg/dL [facility] INSURANCE BILL Protein Total 6.3 6.0 - 8.5 g/dL [facility] INSURANCE BILL Albumin 4.3 3.6 - 4.8 g/dL [facility] INSURANCE BILL Globulin Total 2.0 1.5 - 4.5 g/dL [facility] INSURANCE BILL Albumin/Globulin Ratio 2.2 1.2 - 2.2 [facility] INSURANCE BILL Bilirubin Total 0.5 0.0 - 1.2 mg/dL [facility] INSURANCE BILL Alkaline Phosphatase 79 39 - 117 IU/L [facility] INSURANCE BILL AST 22 0 - 40 IU/L [facility] INSURANCE BILL ALT 28 0 - 44 IU/L [facility] INSURANCE BILL Comment:FASTING Blood BLOOD SPECIMEN / Unknown 08/12/2018 7:37 AM [employer] 08/12/2018 Narrative Resulting Agency Comment [facility] [address] [facility] [phone] Jose F Velazquez MD LAB - CHEMISTRY ORDE RABRODRI [facility] INSURANCE BILL [address] [place] [address] * URINALYSIS REFLEX TO MICROSCOPIC NO CULTURE (12/23/2017 8:20 AM CDT) Only the most recent of7 resultswithin the time period is included. Specific Stafford UA 1.016 1.005 - 1.030 [facility] INSURANCE BILL pH UA 5.5 5.0 - 7.5 [facility] INSURANCE BILL Color UA Yellow Yellow [facility] INSURANCE BILL Appearance Clear Clear [facility] INSURANCE BILL Leukocyte UA Negative Negative [facility] INSURANCE BILL Protein UA Negative Negative/Tra ce [facility] INSURANCE BILL Glucose UA Negative Negative [facility] INSURANCE BILL Ketone UA Negative Negative [facility] INSURANCE BILL Occult Blood Urine Negative Negative [facility] INSURANCE BILL Bilirubin UA Negative Negative [facility] INSURANCE BILL Urobilinogen 0.2 0.2 - 1.0 mg/dL [facility] INSURANCE BILL Nitrite UA Negative Negative [facility] INSURANCE BILL Microscopic Examination Urine [facility] INSURANCE BILL Comment: Microscopic not indicated and not performed. FASTING 12/23/2017 8:20 AM CDT 12/23/2017 Narrative Resulting Agency Comment [facility] [address] [facility] [facility] [phone] Jose F Velazquez MD LAB - URINALYSIS ORD ERABLES Performing Organization Address City/[facility]/ZIP Co de Phone Number [facility] INSURANCE BILL [address] [place] [address] * (ABNORMAL) FERRITIN (12/23/2017 8:20 AM CDT) Only the most recent of7 resultswithin the time period is included. Ferritin 1,580(H) 30 - 400 ng/mL [facility] Comment:FASTING 12/23/2017 8:20 AM CDT 12/23/2017 Narrative Resulting Agency Comment [facility] [address] [facility] [phone] Jose F Velazquez MD LAB - CHEMISTRY ORDE RL [facility] [address] [place] [address] * SACCHAROMYCES ANTIBODY (ASCA) IGG/IGA PANEL (02/13/2017 9:18 AM CDT) Saccharomyces cerevisiae Antibody IgG <20.0 0.0 - 24.9 Units [facility] (BEAKER) Comment: Negative <20.0 Equivocal 20.1 - 24.9 Positive >or= 25.0 Saccharomyces cerevisiae Antibody IgA <20.0 0.0 - 24.9 Units [facility] (BEAKER) Comment: Negative <20.0 Equivocal 20.1 - 24.9 Positive >or= 25.0 IgA and IgG antibody testing for S. cerevisiae is useful adjunct testing for differentiating Crohn's disease and ulcerative colitis. Close to 80% of Crohn's disease patients are positive for either IgA or IgG. In ulcerative colitis, less than 15% are positive for IgG and less than 2% are positive for IgA. Fewer than 5% are positive for either IgG or IgA antibody, and no healthy controls had antibody for both. Blood specimen (specimen) BLOOD SPECIMEN / Unknown 02/13/2017 9:18 AM CDT 02/13/2017 Narrative [facility] ([facility]) - 02/18/2017 7:13 AM CDT Performed at: - [address] [id number] Speaker Mounter: Rolan Rubio MD, Phone: [phone] Jose F Velazquez MD LAB - SEROLOGY ORDER AVELINO [facility] ([facility]) * (ABNORMAL) ALDOLASE (01/14/2017 8:12 AM CDT) Only the most recent of2 resultswithin the time period is included. Aldolase 2.8(L) 3.3 - 10.3 U/L [facility] ([facility]) Blood specimen (specimen) BLOOD SPECIMEN / Unknown 01/14/2017 8:12 AM CDT 01/14/2017 Narrative [facility] ([facility]) - 01/15/2017 3:19 PM CDT Performed at: [address] [place] [id number] Speaker Mounter: Fransisco Graham PhD, Phone: [phone] Jose F Velazquez MD LAB - CHEMISTRY CHANG SHINE Performing Organization Address [facility] Co de Phone Number [facility] ([facility]) * CK BLOOD (01/14/2017 8:12 AM CDT) Only the most recent of2 resultswithin the time period is included. Pathologist [facility] CK Total 69 24 - 204 U/L [facility] ([facility]) Blood specimen (specimen) BLOOD SPECIMEN / Unknown 01/14/2017 8:12 AM CDT 01/14/2017 Narrative [facility] ([facility]) - 01/15/2017 3:19 PM CDT Performed at: [address] [place] [id number] Speaker Mounter: Fransisco Graham PhD, Phone: [phone] Jose F Velazquez MD LAB - CHEMISTRY CHANG SHINE Performing Organization Address [facility] Co de Phone Number [facility] ([facility]) * CHLAMYDIA + GC + TRICH DNA AMPL (12/24/2016 11:25 AM CDT) Pathologist [facility] Chlamydia by LYNSEY Negative Negative [facility] ([facility]) Gonococcus by Nucleic Acid Amp Negative Negative [facility] ([facility]) Trichomonas vaginalis by LYNSEY Negative Negative [facility] ([facility]) Urine specimen (specimen) 12/24/2016 11:25 AM CDT 12/24/2016 Narrative [facility] ([facility]) - 12/26/2016 11:15 AM CDT Specimen Type->Urine Performed at: [address] [id number] Speaker Mounter: Katy Whittington MD, Phone: [phone] Jose F Velazquez MD LAB - MICROBIOLOGY O RDERABLES Performing Organization Address City/[facility]/ZIP Co de Phone Number [facility] ([facility]) * CHLAMYDIA ANTIBODY IGG PANEL (12/24/2016 11:25 AM CDT) Chlamydia Antibody IgG <0.91 0.00 - 0.90 ratio [facility] ([facility]) Comment: Negative <0.91 Equivocal 0.91 - 1.09 Positive >1.09 Blood specimen (specimen) BLOOD SPECIMEN / Unknown 12/24/2016 11:25 AM CDT 12/24/2016 Narrative [facility] ([facility]) - 12/26/2016 11:15 AM CDT Performed at: [address] [place] [id number] Speaker Mounter: Rolan Rubio MD, Phone: [phone] Jose F Velazquez MD LAB - SEROLOGY ORDER AVELINO Performing Organization Address [facility]/ZIP Co de Phone Number [facility] ([facility]) * JOSE W/REFLEX IFA PATTERN (10/25/2016 9:33 AM CDT) JOSE IFA Negative [facility] ([facility]) Comment: Negative <1:80 Borderline 1:80 Positive >1:80 Blood specimen (specimen) BLOOD SPECIMEN / Unknown 10/25/2016 9:33 AM CDT 10/25/2016 Narrative [facility] ([facility]) - 11/01/2016 11:12 AM CDT Performed at: [address] [place] [address], [place] [id number] Speaker Mounter: Fransisco Graham PhD, Phone: [phone] Jose F Velazquez MD LAB - SEROLOGY ORDER AVELINO [facility] ([facility]) * (ABNORMAL) LYME DISEASE IGG/IGM PANEL WB/IMMUNOBLOT (10/25/2016 9:33 AM CDT) IgG P93 Antibody Absent [facility] (BEAK[facility]) IgG P66 Antibody Present(A) [facility] ([facility]) IgG P58 Antibody Present(A) [facility] (BEAKER) IgG P45 Antibody Absent [facility] (BEAKER) IgG P41 Antibody Absent [facility] (BEAK[facility]) IgG P39 Antibody Absent [facility] (BEAK[facility]) IgG P30 Antibody Absent [facility] (BEAK[facility]) IgG P28 Antibody Absent [facility] (BE[facility]) IgG P23 Antibody Absent [facility] (BE[facility]) IgG P18 Antibody Absent [facility] (BEAK[facility]) Interpretation Lyme Antibody IgG Western Blot Negative [facility] (BEAKER) Comment: Positive: 5 of the following Borrelia-specific bands: 18,23,28,30,39,41,45,58, 66, and 93. Negative: No bands or banding patterns which do not meet positive criteria. IgM P41 Antibody Absent [facility] (BEAKER) IgM P39 Antibody Absent [facility] (BEAK[facility]) IgM P23 Antibody Absent [facility] (BEAKER) Interpretation Lyme Antibody IgM WB Negative [facility] (BEAKER) Comment: Note: An equivocal or positive EIA result followed by a negative Western Blot result is considered NEGATIVE. An equivocal or positive EIA result followed by a positive Western Blot is considered POSITIVE by the CDC. Positive: 2 of the following bands: 23,39 or 41 Negative: No bands or banding patterns which do not meet positive criteria. Criteria for positivity are those recommended by CDC/ASTPHLD. p23=Osp C, x74=[id number] Note: Sera from individuals with the following may cross react in the Lyme Western Blot assays: other spirochetal diseases (periodontal disease, leptospirosis, relapsing fever, yaws, and pinta); connective autoimmune (Rheumatoid Arthritis and Systemic Lupus Erythematosus and also individuals with Antinuclear Antibody); other infections ([place] Spotted Fever; Rochelle-Ballesteros Virus, and Cytomegalovirus). Blood specimen (specimen) BLOOD SPECIMEN / Unknown 10/25/2016 9:33 AM CDT 10/25/2016 Narrative [facility] ([place]) - 11/01/2016 11:12 AM CDT Performed at: [address] [id number] Speaker Mounter: Rolan Rubio MD, Phone: [phone] Jose F Velazquez MD LAB - SEROLOGY ORDER [facility]) * DNA ANTIBODY DS CRITHIDIA IFA (10/25/2016 9:33 AM CDT) [facility] dsDNA (nDNA) Screen by Crithidia <1:10 titer [facility] ([place]) Comment: Reference Range: Negative: < 1:10 titer Positive: => 1:10 titer Double-stranded DNA (dsDNA) antibodies of the IgG class are an accepted criterion ([employer]) for the diagnosis of systemic lupus erythematosus (SLE). DsDNA antibodies detected by Crithidia method is highly specific (over 95%) for SLE. The sensitivity for this method is approximately 70-85% of patients with untreated SLE, and is rarely detectable in other connective tissue diseases. Weakly-positive results caused by low-avidity antibodies to dsDNA are not specific for SLE and can occur in a variety of diseases. The levels of IgG antibodies to dsDNA in serum are known to fluctuate with disease activity in lupus erythematous, often increasing prior to an increase in inflammation and decreasing in response to therapy. *This test has been developed and performance parameters have been validated by [employer] This test has not been approved by the U.S. Food and Drug Administration (FDA); however, US FDA approval is not required for clinical use. It is not intended that clinical diagnosis and patient management decisions be made using these results alone. This test has been validated using serum samples. The fisheries technician has not determined the efficacy of this test when performed on CSF, plasma, joint or pleural fluid specimens. The performance characteristics of this test were determined by [employer] [employer] 10/25/2016 9:33 AM CDT 10/25/2016 Narrative [facility] ([facility]) - 11/01/2016 11:12 AM CDT Performed at: [facility] [place] [facility] [address] [place] [address] [phone] Speaker Mounter: Berto Posada PhD, Phone: [phone] Jose F Velazquez MD LAB - SEROLOGY ORDER AVELINO Performing Organization Address City/[facility]/ZIP Co de Phone Number [facility] ([facility]) * RPR W REFLEX CONFIRM (10/25/2016 9:33 AM CDT) Pathologist [facility] RPR Non Reactive Non Reactive [facility]) 10/25/2016 9:33 AM CDT 10/25/2016 Narrative [facility]) - 11/01/2016 11:12 AM CDT Performed at: [address] [place] [address] [phone] Speaker Mounter: Fransisco Graham PhD, Phone: [phone] Jose F Velazquez MD LAB - CHEMISTRY CHANG SHINE Performing Organization Address [facility] Co de Phone Number [facility] ([facility]) * TISSUE TRANSGLUTAMINASE AB IGG (10/25/2016 9:33 AM CDT) Pathologist [facility] TTG Antibody IgG <2 0 - 5 U/mL [facility]) Comment: Negative 0 - 5 Weak Positive 6 - 9 Positive >9 Blood specimen (specimen) BLOOD SPECIMEN / Unknown 10/25/2016 9:33 AM CDT 10/25/2016 Narrative [facility] ([facility]) - 11/01/2016 11:12 AM CDT Performed at: [address] [place] [address] [phone] Speaker Mounter: Fransisco Graham PhD, Phone: [phone] Jose F Velazquez MD LAB - CHEMISTRY ORDE RL Performing Organization Address [facility] Co de Phone Number [facility] ([facility]) * TISSUE TRANSGLUTAMINASE AB IGA (10/25/2016 9:33 AM CDT) Pathologist [facility] TTG Antibody IgA <2 0 - 3 U/mL [facility] ([facility]) Comment: Negative 0 - 3 Weak Positive 4 - 10 Positive >10 Tissue Transglutaminase (tTG) has been identified as the endomysial antigen. Studies have demonstr- ated that endomysial IgA antibodies have over 99% specificity for gluten sensitive enteropathy. Blood specimen (specimen) BLOOD SPECIMEN / Unknown 10/25/2016 9:33 AM CDT 10/25/2016 Narrative [facility] ([facility]) - 11/01/2016 11:12 AM CDT Performed at: 01 - [address] [id number] Speaker Mounter: Fransisco Graham PhD, Phone: [phone] Jose F Velazquez MD LAB - SEROLOGY ORDER AVELINO Performing Organization Address [facility] Co de Phone Number [facility] ([facility]) * EHRLICHIA CHAFFEENSIS PCR (10/25/2016 9:33 AM CDT) [facility] Anaplasma phagocytophilum PCR Negative Negative [facility] ([facility]) Comment: No Anaplasma phagocytophilum DNA detected. A. phagocytophilum has been characterized as the causative agent of Human Granulocytic Ehrlichiosis (HGE). This test was developed and its performance characteristics determined by [employer]. It has not been cleared or approved by the Food and Drug Administration. Ehrlichia chaffeensis PCR Negative Negative [facility] ([facility]) Comment: No Ehrlichia chaffeensis DNA detected. E. chaffeensis has been characterized as the causative agent of Human Monocytic Ehrlichiosis (HME). This test was developed and its performance characteristics determined by [employer]. It has not been cleared or approved by the Food and Drug Administration. 10/25/2016 9:33 AM CDT 10/25/2016 Narrative [facility] ([place]) - 11/01/2016 11:12 AM CDT Performed at: [address] [id number] Speaker Mounter: Rolan Rubio MD, Phone: [phone] Jose F Velazquez MD LAB - MICROBIOLOGY O RDERABLES Performing Organization Address [facility] Co de Phone Number [facility] ([facility]) * (ABNORMAL) PARVOVIRUS B19 IGG/IGM AB PANEL (10/25/2016 9:33 AM CDT) Parvovirus B19 Antibody IgG 4.4(H) 0.0 - 0.8 index [facility] ([facility]) Comment: Negative <0.9 Equivocal 0.9 - 1.1 Positive >1.1 Parvovirus B19 Antibody IgM 0.2 0.0 - 0.8 index [facility] ([facility]) Comment: Negative <0.9 Equivocal 0.9 - 1.1 Positive >1.1 10/25/2016 9:33 AM CDT 10/25/2016 Narrative [facility] - 11/01/2016 11:12 AM CDT Performed at: [address] [id number] Speaker Mounter: Rolan Rubio MD, Phone: [phone] Jose F Velazquez MD LAB - SEROLOGY ORDER AVELINO Performing Organization Address [facility] Co de Phone Number [facility] * GARCIA (SM) ANTIBODY FRANSICO (10/25/2016 9:33 AM CDT) Garcia Antibody <0.2 0.0 - 0.9 AI [facility] ([facility]) Blood specimen (specimen) BLOOD SPECIMEN / Unknown 10/25/2016 9:33 AM CDT 10/25/2016 Narrative [facility] - 11/01/2016 11:12 AM CDT Performed at: [address] [place] [address] [phone] Speaker Mounter: Fransisco Graham PhD, Phone: [phone] Jose F Velazquez MD LAB - CHEMISTRY CHANG SHINE Performing Organization Address [facility] Co de Phone Number [facility]) * BELL ATTENDANT ANTIBODY (10/25/2016 9:33 AM CDT) Pathologist [facility] BELL ATTENDANT Antibody <0.2 0.0 - 0.9 AI [facility] ([facility]) Blood specimen (specimen) BLOOD SPECIMEN / Unknown 10/25/2016 9:33 AM CDT 10/25/2016 Narrative [facility] ([facility]) - 11/01/2016 11:12 AM CDT Performed at: [address] [place] [address] [phone] Speaker Mounter: Fransisco Graham PhD, Phone: [phone] Jose F Velazquez MD LAB - CHEMISTRY CHANG SHINE Performing Organization Address [facility] de Phone Number [facility] ([facility]) * RHEUMATOID FACTOR BLOOD QUANTITATIVE (10/25/2016 9:33 AM CDT) Pathologist [facility] RA latex Turbidimetry <10.0 0.0 - 13.9 IU/mL [facility]) Blood specimen (specimen) BLOOD SPECIMEN / Unknown 10/25/2016 9:33 AM CDT 10/25/2016 Narrative [facility]) - 11/01/2016 11:12 AM CDT Performed at: [address] [place] [address] [phone] Speaker Mounter: Fransisco Graham PhD, Phone: [phone] Jose F Velazquez MD LAB - CHEMISTRY CHANG SHINE Performing Organization Address [facility] Co de Phone Number [facility]) * CYTOMEGALOVIRUS ANTIBODY IGG/IGM BLOOD PANEL (10/25/2016 9:33 AM CDT) Pathologist [facility] Cytomegalovirus Antibody IgG <0.60 0.00 - 0.59 U/mL [facility] Comment: Negative <0.60 Equivocal 0.60 - 0.69 Positive >0.69 Cytomegalovirus Antibody IgM <30.0 0.0 - 29.9 AU/mL [facility] Comment: Negative <30.0 Equivocal 30.0 - 34.9 Positive >34.9 A positive result is generally indicative of acute infection, reactivation or persistent IgM production. Blood specimen (specimen) BLOOD SPECIMEN / Unknown 10/25/2016 9:33 AM CDT 10/25/2016 Narrative [facility] ([facility]) - 11/01/2016 11:12 AM CDT Performed at: [address] [place] [address] [id number] Speaker Mounter: Fransisco Graham PhD, Phone: [phone] Jose F Velazquez MD LAB - CHEMISTRY CHANG SHINE [facility] ([facility]) * (ABNORMAL) ROCHELLE-BALLESTEROS VIRUS PANEL (10/25/2016 9:33 AM CDT) Rochelle-Ballesteros Virus Antibody To Viral Capsid Antigen IgM <36.0 0.0 - 35.9 U/mL [facility] ([facility]) Comment: Negative <36.0 Equivocal 36.0 - 43.9 Positive >43.9 Rochelle-Ballesteros Virus Early Antigen Antibody IgG <9.0 0.0 - 8.9 U/mL [facility] ([facility]) Comment: Negative < 9.0 Equivocal 9.0 - 10.9 Positive >10.9 Rochelle-Ballesteros Virus Antibody To Viral Capsid Antigen IgG 40.4(H) 0.0 - 17.9 U/mL [facility] ([facility]) Comment: Negative <18.0 Equivocal 18.0 - 21.9 Positive >21.9 Rochelle-Ballesteros Virus Nuclear Antigen Antibody IgG <18.0 0.0 - 17.9 U/mL [facility] ([facility]) Comment: Negative <18.0 Equivocal 18.0 - 21.9 Positive >21.9 Interpretation [facility]) Comment: EBV Interpretation Chart Interpretation EBV-IgM EA(D)-IgG VCA-IgG EBNA-IgG EBV Seronegative - - - - Early Phase + - - - Acute Primary + +or- + - Infection Convalescence/Past - +or- + + Infection Reactivated +or- + + + Infection + Antibody Present - Antibody Absent Serum 10/25/2016 9:33 AM CDT 10/25/2016 Narrative [facility] ([facility]) - 11/01/2016 11:12 AM CDT Performed at: [address] [place] [address] [phone] Speaker Mounter: Fransisco Graham PhD, Phone: [phone] Jose F Velazquez MD LAB - CHEMISTRY CHANG SHINE Performing Organization Address [facility] Co de Phone Number [facility] ([facility]) * SS-A/SS-B (SJOGRENS) ANTIBODY PANEL (10/25/2016 9:33 AM CDT) Sjogren's Antibodies (SSA) <0.2 0.0 - 0.9 AI [facility] Sjogren's Antibodies (SSB) <0.2 0.0 - 0.9 AI [facility] ([facility]) 10/25/2016 9:33 AM CDT 10/25/2016 Narrative [facility] ([facility]) - 11/01/2016 11:12 AM CDT Performed at: [address] [place] [address] [phone] Speaker Mounter: Fransisco Graham PhD, Phone: [phone] Jose F Velazquez MD LAB - CHEMISTRY CHANG SHINE Performing Organization Address [facility]/ZIP Co de Phone Number [facility] ([facility]) * HLA TYPING B27 (10/25/2016 9:33 AM CDT) HLA-B27 Negative [facility] ([facility]) Comment: HLA-B*27 Negative HLA allele interpretation for all loci based on IMGT/HLA database version 3.25.0 HLA Lab CLIA ID Number [id number] This test was performed using PCR (Polymerase Chain Reaction)/SSOP (Sequence Specific Oligonucleotide Probes) technique. SBT (Sequence Based Typing) and/or SSP (Sequence Specific Primers) may be used as supplemental methods when necessary. Please contact [facility] Customer Service at if you have any questions. Director of HLA Laboratory Dr Jordi Randolph, PhD Blood specimen (specimen) BLOOD SPECIMEN / Unknown 10/25/2016 9:33 AM CDT 10/25/2016 Narrative [facility]) - 11/01/2016 11:12 AM CDT Performed at: 04 - [address] [phone] Speaker Mounter: Jordi Randolph PhD, Phone: [phone] Jose F Velazquez MD LAB - CHEMISTRY CHANG SHINE Performing Organization Address [facility] Co de Phone Number [facility] ([facility]) * HISTONE ANTIBODY (10/25/2016 9:33 AM CDT) [facility] Histone Antibody 0.7 0.0 - 0.9 Units [facility] ([facility]) Comment: Negative <1.0 Weak Positive 1.0 - 1.5 Moderate Positive 1.6 - 2.5 Strong Positive >2.5 Blood specimen (specimen) BLOOD SPECIMEN / Unknown 10/25/2016 9:33 AM CDT 10/25/2016 Narrative [facility] ([facility]) - 11/01/2016 11:12 AM CDT Performed at: 02 - [address] [id number] Speaker Mounter: Rolan Rubio MD, Phone: [phone] Jose F Velazquez MD LAB - CHEMISTRY CHANG SHINE Performing Organization Address [facility] Co de Phone Number [facility] ([facility]) * (ABNORMAL) COMPLEMENT TOTAL (10/25/2016 9:33 AM CDT) Pathologist [facility] Complement Total CH50 >60(H) 42 - 60 U/mL [facility]) Blood specimen (specimen) BLOOD SPECIMEN / Unknown 10/25/2016 9:33 AM CDT 10/25/2016 Narrative [facility] ([place]) - 11/01/2016 11:12 AM CDT Performed at: - [address] [phone] Speaker Mounter: Fransisco Graham PhD, Phone: [phone] Jose F Velazquez MD LAB - CHEMISTRY CHANG SHINE Performing Organization Address [facility] Co de Phone Number [facility] ([facility]) * VITAMIN D 25-HYDROXY (10/25/2016 9:33 AM CDT) [facility] Vitamin D, 25 Hydroxy 68.6 30.0 - 100.0 ng/mL [facility] Comment: Vitamin D deficiency has been defined by the [place] of Medicine and an Endocrine Society practice guideline as a level of serum 25-OH vitamin D less than 20 ng/mL (1,2). The Endocrine Society went on to further define vitamin D insufficiency as a level between 21 and 29 ng/mL (2). 1. IOM ([place] of Medicine). 2010. Dietary reference intakes for calcium and D. [place]: The National Academies Press. 2. Armando MF, Cindy DAVISON, Damaris GODOY, et al. Evaluation, treatment, and prevention of vitamin D deficiency: an Endocrine Society clinical practice guideline. JCEM. 2010; 96(7):1911-30. Blood specimen (specimen) BLOOD SPECIMEN / Unknown 10/25/2016 9:33 AM CDT 10/25/2016 Narrative [facility] ([place]) - 11/01/2016 11:12 AM CDT Performed at: - [address] [phone] Speaker Mounter: Fransisco Graham PhD, Phone: [phone] Jose F Velazquez MD LAB - CHEMISTRY CHANG SHINE Performing Organization Address [facility] Co de Phone Number [facility] ([facility]) * CYCLIC CITRUL PEPTIDE AB IGG ([facility]P) (10/25/2016 9:33 AM CDT) Pathologist [facility] Cyclic Citrullinated Peptide Antibody 4 0 - 19 units [facility] ([facility]) Comment: Negative <20 Weak positive 20 - 39 Moderate positive 40 - 59 Strong positive >59 Blood specimen (specimen) BLOOD SPECIMEN / Unknown 10/25/2016 9:33 AM CDT 10/25/2016 Narrative [facility] ([facility]) - 11/01/2016 11:12 AM CDT Performed at: [address] [id number] Speaker Mounter: Rolan Rubio MD, Phone: [phone] Jose F Velazquez MD LAB - CHEMISTRY ORDYenni SHINE Performing Organization Address City/[facility]/ZIP Co de Phone Number [facility] ([facility]) * COMPLEMENT C4 (10/25/2016 9:33 AM CDT) [facility] Complement C4 26 14 - 44 mg/dL [facility] ([facility]) Blood specimen (specimen) BLOOD SPECIMEN / Unknown 10/25/2016 9:33 AM CDT 10/25/2016 Narrative [facility] ([facility]) - 11/01/2016 11:12 AM CDT Performed at: [address] [place] [address] [phone] Speaker Mounter: Fransisco Graham PhD, Phone: [phone] Jose F Velazquez MD LAB - SEROLOGY ORDER AVELINO [facility] ([facility]) * LDH BLOOD (10/25/2016 9:33 AM CDT) Pathologist [facility] LDH Total 133 121 - 224 IU/L [facility] ([facility]) Blood specimen (specimen) BLOOD SPECIMEN / Unknown 10/25/2016 9:33 AM CDT 10/25/2016 Narrative [facility] ([facility]) - 11/01/2016 11:12 AM CDT Performed at: [address] [place] [address] [phone] Speaker Mounter: Fransisco Graham PhD, Phone: [phone] Jose F Velazquez MD LAB - CHEMISTRY CHANG SHINE Performing Organization Address City/[facility]/ZIP Co de Phone Number [facility]) * HEPATITIS B SURFACE ANTIBODY (10/25/2016 9:33 AM CDT) Hepatitis B Virus Surface Antibody Non Reactive [facility]) Comment: Non Reactive: Inconsistent with immunity, less than 10 mIU/mL Reactive: Consistent with immunity, greater than 9.9 mIU/mL Blood specimen (specimen) BLOOD SPECIMEN / Unknown 10/25/2016 9:33 AM CDT 10/25/2016 Narrative [facility] ([facility]) - 11/01/2016 11:12 AM CDT Performed at: [address] [place] [address] [phone] Speaker Mounter: Fransisco Graham PhD, Phone: [phone] Jose F Velazquez MD LAB - CHEMISTRY CHANG SHINE Performing Organization Address [facility]/ZIP Co de Phone Number [facility] ([facility]) * HEPATITIS B CORE ANTIBODY (10/25/2016 9:33 AM CDT) Hepatitis B Core Virus Antibody Total Negative Negative [facility]) Blood specimen (specimen) BLOOD SPECIMEN / Unknown 10/25/2016 9:33 AM CDT 10/25/2016 Narrative [facility] - 11/01/2016 11:12 AM CDT Performed at: [address] [place] [address] [id number] Speaker Mounter: Fransisco Graham PhD, Phone: [phone] Jose F Velazquez MD LAB - CHEMISTRY CHANG SHINE Performing Organization Address City/[facility]/ZIP Co de Phone Number [facility] ([facility]) * HEPATITIS B SURFACE ANTIGEN W RFLX CONFIRMATION (10/25/2016 9:33 AM CDT) Pathologist [facility] Hepatitis B Virus Surface Antigen Screen Negative Negative [facility] ([facility]) Blood specimen (specimen) BLOOD SPECIMEN / Unknown 10/25/2016 9:33 AM CDT 10/25/2016 Narrative [facility] ([facility]) - 11/01/2016 11:12 AM CDT Performed at: [address] [place] [address] [phone] Speaker Mounter: Fransisco Graham PhD, Phone: [phone] Jose F Velazquez MD LAB - CHEMISTRY CHANG SHINE Performing Organization Address City/[facility]/ZIP Co de Phone Number [facility] * TSH (10/25/2016 9:33 AM CDT) [facility] TSH 0.931 0.450 - 4.500 uIU/mL [facility] ([facility]) Blood specimen (specimen) BLOOD SPECIMEN / Unknown 10/25/2016 9:33 AM CDT 10/25/2016 Narrative [facility] ([facility]) - 11/01/2016 11:12 AM CDT Performed at: [address] [place] [address] [phone] Speaker Mounter: Fransisco Graham PhD, Phone: [phone] Jose F Velazquez MD LAB - CHEMISTRY CHANG SHINE Performing Organization Address City/[facility]/ZIP Co de Phone Number [facility] * IMMUNOGLOBULINS IGG/IGM/IGA PANEL (10/25/2016 9:33 AM CDT) Pathologist [facility] IgG Quantitative 757 700 - 1600 mg/dL [facility] ([facility]) IgA Quantitative 189 61 - 437 mg/dL [facility] ([facility]) IgM Quantitative 50 20 - 172 mg/dL [facility] ([facility]) Venous blood specimen (specimen) 10/25/2016 9:33 AM CDT 10/25/2016 Narrative [facility] ([facility]) - 11/01/2016 11:12 AM CDT Performed at: [address] [place] [address] [phone] Speaker Mounter: Fransisco Graham PhD, Phone: [phone] Jose F Velazquez MD LAB - CHEMISTRY CHANG SHINE Performing Organization Address City/[facility]/ZIP Co de Phone Number [facility] ([facility]) * COMPLEMENT C3 (10/25/2016 9:33 AM CDT) Complement C3 135 82 - 167 mg/dL [facility] ([facility]) Blood specimen (specimen) BLOOD SPECIMEN / Unknown 10/25/2016 9:33 AM CDT 10/25/2016 Narrative [facility] - 11/01/2016 11:12 AM CDT Performed at: [address] [place] [address] [phone] Speaker Mounter: Fransisco Graham PhD, Phone: [phone] Jose F Velazquez MD LAB - CHEMISTRY CHANG SHINE Performing Organization Address [facility] Co de Phone Number [facility] ([facility]) * HEPATITIS C AB W/RFLX TO HCV RNA QN PCR (10/25/2016 9:30 AM CDT) Only the most recent of2 resultswithin the time period is included. Pathologist [facility] Hepatitis C Antibody 0.2 0.0 - 0.9 s/co ratio [facility] ([facility]) 10/25/2016 9:30 AM CDT 10/28/2016 Narrative [facility] - 10/30/2016 7:12 AM CDT Performed at: [address] [place] [address] [phone] Speaker Mounter: Fransisco Graham PhD, Phone: [phone] Jose F Velazquez MD LAB - CHEMISTRY HCANG SHINE Performing Organization Address City/[facility]/ZIP Co de Phone Number [facility] ([facility]) Care Teams Residential Manager Relationship Specialty Start Date End Date Porfirio Constantino MD [facility] [place] [address] PCP - General 11/26/17
--- OUTSIDE RECORDS SUMMARY | 2024-10-14 14:10 | XMS_ITS | Clinical Summary ---
Author Organization [facility] [employer] Address [address] [place] [address] Care Team Providers Care Cargo Surveyor Name Role Phone Porfirio Constantino MD Primary Care Provider [phone]- [phone] Source Comments [facility],non-owned Affiliates and Associated Physician Practices is amultiple site organization consisting of ambulatory clinics and hospital sitesin [place], [place], [place] and [place]. This disclosure is being madepursuant to the Care Everywhere program and may not contain all information available regarding this patient. Last updated 18.[facility] [employer] Allergies Active Allergy Reactions Criticality Noted Date [...] Comments Blood Pressure 138/78 09/15/2017 1:36 PM OPERATIONS PROJECT MANAGER Pulse 74 05/12/2017 1:36 PM CDT Temperature 36.9 C (98.5 F) 09/15/2017 1:36 PM OPERATIONS PROJECT MANAGER Respiratory Rate 16 05/12/2017 1:36 PM CDT Oxygen Saturation - - Inhaled Oxygen Concentration - - Weight 112.9 kg (249 lb) 09/15/2017 1:36 PM OPERATIONS PROJECT MANAGER Height 171.5 cm (5' 7.5 ) 09/15/2017 1:36 PM OPERATIONS PROJECT MANAGER Body Mass Index 38.42 09/15/2017 1:36 PM OPERATIONS PROJECT MANAGER Plan of Treatment Health Maintenance Due Date Last Done Comments COLOGUARD (AGES 45-75) - COL ON CA SCREENING 1955 COLON MONITORING 1955 COLONOSCOPY - COLON CA SCREENING 1954 CT COLONOGRAPHY - COLON CA SCREENING 1955 Colorectal Cancer Screening 1955 FIT - COLON CA SCREENING 1955 FLEX SIG - COLON CA SCREENING 1955 LIPID TESTING 1955 DTAP/TDAP/TD VACCINES (1 - Tdap) 1973 PNEUMOCOCCAL VACCINE 50+ (1 of 1 - PCV) 02/11/2004 ZOSTER VACCINE (1 of 2) 02/11/2004 COVID-19 VACCINE ( - 2023-2 5 season) 2024 INFLUENZA VACCINE (#1) 2024 DEPRESSION SCREENING 08/04/2024 Respiratory Syncytial Virus (RSV) Vaccine Pt: or over 60 yrs (1 - 1-dose 75+ series) 2029 HEPATITIS C SCREENING Completed 10/25/2016 , 10/25/2016 HEPATITIS B VACCINE Aged Out No longe r eligible based on patient's age to complete this topic HIB VACCINE Aged Out No longer eligi ble based on patient's age to complete this topic HPV VACCINE Aged Out No longer eligi ble based on patient's age to complete this topic MENINGOCOCCAL (Group B) VACCINE SHARED DECISION-MAKING Aged Out No longer eligible based on patient's age to complete this topic MENINGOCOCCAL GROUPS A/C/Y/W VACCINE Aged Out No longer eligible b ased on patient's age to complete this topic Procedures Procedure Name Priority Date/Time Associated Diagnosis Comments HEPATITIS C AB W/RFLX TO HCV RNA QN PCR Routine 10/25/2016 12:00 AM CDT from Last 3 Months or Most Recently Relevant to Health Maintenance Results * HEPATITIS C AB W/RFLX TO HCV RNA QN PCR (10/25/2016 12:00 AM CDT) Hepatitis C Antibody 0.2 0.0 - 0.9 s/co ratio [facility] ([facility]) 10/25/2016 10/25/2016 Narrative [facility] ([facility]) - 10/26/2016 9:13 AM CDT Performed at: 01 - [address] [id number] Computer Project Manager: Fransisco Graham PhD, Phone: [phone] Jose F Velazquez MD LAB - CHEMISTRY CHANG SHINE [facility] from Last 3 Months or Most Recently Relevant to Health Maintenance Care Teams Cargo Surveyor Relationship Specialty Start Date End Date Porfirio Constantino MD [address] [place] [phone] PCP - General 11/26/17
--- NOTE | 2024-10-14 15:05 | PC.NURSE ---
Report given to LORRIE Manzo
== END 2024-10-14 16:13 | disposition home or self-care (01) ==
PROVIDERS: Emergency Provider Student in an Organized Health Care Education/Training Program; PCP Family Medicine
DX: T78.3XXA Angioneurotic edema, initial encounter (principal); T78.2XXA Anaphylactic shock, unspecified, initial encounter; I10 Essential (primary) hypertension; E11.9 Type 2 diabetes mellitus without complications; E78.5 Hyperlipidemia, unspecified; J45.909 Unspecified asthma, uncomplicated; M06.9 Rheumatoid arthritis, unspecified; F41.9 Anxiety disorder, unspecified; Z95.5 Presence of coronary angioplasty implant and graft; Z86.0100 Personal history of colon polyps, unspecified; Z79.82 Long term (current) use of aspirin; Z79.84 Long term (current) use of oral hypoglycemic drugs; Z79.899 Other long term (current) drug therapy; I45.10 Unspecified right bundle-branch block; R94.31 Abnormal electrocardiogram [ECG] [EKG]
CPT/HCPCS: 36415; 71045; 80053; 85025; 93005; 96360; 99283; J7120

== ENCOUNTER 2025-05-05 01:14 | Day surgery (SDC) | payer MEDICARE, SELFPAY ==
[2025-04-21 11:19] VITALS: BMI 34.7
--- OUTSIDE RECORDS SUMMARY | 2025-05-05 01:16 | XMS_ITS | Clinical Summary ---
Author Organization [facility] Address [address] [place] [id number] Care Team Providers Care Outreach Liaison Name Role Phone Porfirio Constantino MD Primary Care Provider [phone] Porfirio Constantino MD Unavailable [phone] Allergies Active Allergy Reactions Criticality Noted Date [...] 12 HOURS 180 tablet 1 3 Active aspirin 81 mg enteric coated tablet [...] puff every 12 (twelve) hours 4 Active losartan (COZAAR) 50 mg tabletIndications: Ischemic cardiomyopathy TAKE 1 TABLET BY MOUTH EVERY DAY 90 tablet 1 5 Active budesonide (PULMICORT) 0.25 mg/2 mL nebulizer solution MIX 1 VIAL WITH SALINE AND IRRIGATE SINUSES NASALLY TWICE A DAY 30 DAY(S) Inhalation; Duration: 90 Days Active cetirizine (ZyrTEC) 10 mg tablet every 12 hours Active cholecalciferol (VITAMIN D-3) 5,000 unit tablet Take by mouth Active famotidine (PEPCID) 20 mg tablet daily Active Xhance 93 mcg/actuation aerosol breath activated every 12 hours Active Nucala 100 mg/mL syringe 1 mL Subcutaneous; Duration: 30 day(s) Active montelukast (SINGULAIR) 10 mg tablet 1 TABLET ORALLY 60 MINUTES PRIOR TO SCIT 30 DAYS; Duration: 90 Active nitroglycerin (NITROSTAT) 0.4 mg SL tabletIndications: Coronary artery disease involving la posta coronary artery of la posta heart without angina pectoris Place 1 tablet (0.4 mg total) under the tongue every 5 (five) minutes as needed for chest pain 1 tablet may be used every 5 minutes as needed, for up to 15 minutes. Do not take more than 3 tablets in 15 minutes. To prevent angina. 25 tablet 3 5 Active Active Problems Problem Noted Date Diagnosed Date Nonrheumatic aortic valve stenosis 11/18/2023 History of coronary artery stent placement 10/31 Coronary artery disease invo lving la posta coronary artery of la posta heart without angina pectoris 08/21/2020 Ischemic cardiomyopathy 08/21/2020 Encounters Date Type Department Care Team Description 03/01/2025 8:00 AM CDT Office Visit [facility] [address] [place] [address] Mine Lamb NP Coronary artery disease involving la posta coronary artery of la posta heart without angina pectoris (Primary Dx); Ischemic cardiomyopathy; Nonrheumatic aortic valve stenosis; Lipid screening; Morbid (severe) obesity due to excess calories (E66.01); Body mass index [BMI] 35.0-35.9, adult (Z68.35) from Last 3 Months Medical History Medical [...] on file 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 Gender Identity Not on file Sexual Orientation Not on file Obstetrics History Last Filed Vital Signs Vital Sign Reading Time Taken Comments Blood Pressure 108/58 03/01/2025 8:07 AM CDT Pulse 66 03/01/2025 8:07 AM CDT Temperature 36.9 C (98.4 F) 10/26/2020 12:49 PM CDT Respiratory Rate - - Oxygen Saturation 94% 03/01/2025 8:07 AM CDT Inhaled Oxygen Concentration - - Weight 106.1 kg (234 lb) 03/01/2025 8:07 AM CDT Height 172.7 cm (5' 8) 03/01/2025 8:07 AM CDT Body Mass Index 35.58 03/01/2025 8:07 AM CDT Plan of Treatment Health Maintenance Due Date Last Done Comments Colon Cancer Screening-Colonoscopy 1954 Depression Screening 1954 Fall Risk Assessment 1954 Hepatitis C Screening 1954 DTaP/Tdap/Td Vaccine (1 - Tdap) 1965 Hepatitis B Screening 02/11/1972 Pneumococcal vaccine 65+ (1 of 2 - PCV) 1973 Zoster Vaccine (1 of 2) 02/11/2004 Well Visit 65+ 2019 Influenza Vaccine (#1) 2025 05/05/2020, 2018 Procedures Procedure Name Priority Date/Time Associated Diagnosis Comments POCT LIPID PANEL Routine 03/01/2025 8:11 AM CDT Lipid screening from Last 3 Months Results * (ABNORMAL) POCT lipid panel (03/01/2025 8:11 AM CDT) Cholesterol, POC 113 <200 MG/DL HDL, POC 38(A) >=40 mg/dL Triglycerides, POC 84 <=149 mg/dL LDL Cholesterol POC 59 <=129 mg/dL Chol/HDL Ratio, POC 1.6 NONE Non-HDL Cholesterol, POC 75 NONE mg/dL Cholesterol Total, POC 113 30 - 199 mg/dL Capillary blood 03/01/2025 8 :11 AM CDT Mine Lamb NP POINT OF CARE TEST ORDERA BLES Final Result from Last 3 Months Insurance [facility] Address: [place] [id number] UHC MEDICARE ADVANTAGE [facility] Address: [address] [address] [place] [address] Care Teams Outreach Liaison Relationship Specialty Start Date End Date Porfirio Constantino MD PCP - General Family Medicine 07/14/20 Porfirio Constantino MD 07/14/20
--- OUTSIDE RECORDS SUMMARY | 2025-05-05 01:16 | XMS_ITS | Clinical Summary ---
Author Organization [facility] Address [address] [place] [address] Care Team Providers Care Route Supervisor Name Role Phone Porfirio Constantino MD Primary Care Provider [phone] Allergies No known active allergies Medications metFORMIN (GLUCOPHAGE) 1,000 mg tablet Take 1,000 mg by mouth daily with breakfast. Active diclofenac sodium (VOLTAREN) 75 mg Tablet, Delayed Release (E.C.) Take 75 mg by mouth 2 times daily. Active fluticasone (FLONASE) 50 mcg/spray [place], Suspension Administer 2 Sprays in each nostril [...] 10:21 AM CDT Height 170.2 cm (5' 7) 11/01/2016 10:21 AM CDT Body Mass Index [...] (1 of 2) 02/11/2004 INFLUENZA VACCINE (#1) 2025 RSV VACCINE (60+ or ) (1 - 1-dose 75+ series) 2029 Care Teams Route Supervisor Relationship Specialty Start Date End Date Porfirio Constantino MD PCP - General Family Practice 10/15/16
--- OUTSIDE RECORDS SUMMARY | 2025-05-05 01:16 | XMS_ITS | Clinical Summary ---
Author Organization [facility] [employer] Address [address] [place] [address] Care Team Providers Care Trimmer And Reinforcer Name Role Phone Porfirio Constantino MD Primary Care Provider [phone] Source Comments [facility],non-owned Affiliates and Associated Physician Practices is amultiple site organization consisting of ambulatory clinics and hospital sitesin [place], [place], [place] and [place]. This disclosure is being madepursuant to the Care Everywhere program and may not contain all information available regarding this patient. Last updated 18.[facility] [employer] Allergies Active Allergy Reactions Criticality Noted Date Comments Lisinopril Other Low 10/24/2016 cough Medications * Be aware that medications may not be up to date on this document. Alwaysverify current medications with the patient. 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 Pulse 74 05/12/2017 1:36 PM CDT Temperature 36.9 C (98.5 F) 09/15/2017 1:36 PM TAX SERVICES SPECIALIST Respiratory Rate 16 05/12/2017 1:36 PM CDT Oxygen Saturation - - Inhaled Oxygen Concentration - - Weight 112.9 kg (249 lb) 09/15/2017 1:36 PM TAX SERVICES SPECIALIST Height 171.5 cm (5' 7.5) 09/15/2017 1:36 PM TAX SERVICES SPECIALIST Body Mass Index 38.42 09/15/2017 1:36 PM TAX SERVICES SPECIALIST Plan of Treatment Health Maintenance Due Date [...] 02/11/2004 ZOSTER VACCINE (1 of 2) 02/11/2004 DEPRESSION SCREENING 08/04/2024 COVID-19 VACCINE (1 - 2023-2 5 season) 2025 INFLUENZA VACCINE (#1) 2025 Respiratory Syncytial Virus (RSV) Vaccine Pt: or [...] Antibody 0.2 0.0 - 0.9 s/co ratio [facility] ([facility]) 10/25/2016 10/25/2016 Narrative [facility] ([facility]) - 10/26/2016 9:13 AM CDT Performed at: [facility] - [facility] [address] [place], [place] [id number] Clay Digger: Fransisco Graham PhD, Phone: [phone] us Jose F Velazquez MD LAB - CHEMISTRY ORDERABLES Final Result [facility] ([facility]) [address] [place] [address], [facility] from Last 3 Months or Most Recently Relevant to Health Maintenance Care Teams Trimmer And Reinforcer Relationship Specialty Start Date End Date Porfirio Constantino MD [address] [place] [phone] PCP - General 11/26/17
[2025-05-05 06:40] VITALS: BP 128/60; PULSE 69; RESP 18; TEMP 36.6; O2SAT 98; BMI 34.6
--- NOTE | 2025-05-05 07:02 | WPDANESEPPF ---
Anes - Initial Pre Proc Eval Procedure: Operation Date: 05/05/25 08:00 Proposed Procedures p Screening Colonoscopy - Orville Purdy MD Date/Time: 05/05/25 07:02 Surgeon: Orville Purdy MD Pre Op Diagnosis: SCREENING/PERSONAL HX OF COLON POLYPS Patient Data Age: 70 Gender: M Height: 1.73 m Weight: 103.3 kg Last Vital Signs Temp 36.6 C 05/05/25 06:40 Pulse 69 05/05/25 06:40 Resp 18 05/05/25 06:40 BP 128/60 05/05/25 06:40 Pulse Ox 98 05/05/25 06:40 O2 Del Method Room Air 05/05/25 06:40 Allergies Allergy/AdvReac Type Severity Reaction Status Date / Time codeine Allergy Intermediate HIVES Verified 05/05/25 06:48 lisinopril Allergy Unknown Unknown Verified 05/05/25 06:48 sulfamethoxazole (From AdvReac Intermediate skin Verified 05/05/25 06:48 Sulfamethoxazole-Trimethoprim) symptoms trimethoprim (From AdvReac Intermediate skin Verified 05/05/25 06:48 Sulfamethoxazole-Trimethoprim) symptoms albuterol AdvReac coughing Verified 05/05/25 06:48 Home Medications ?Medication ?Instructions ?Recorded ?Confirmed ?Type aspirin 81 mg tablet,delayed 81 mg PO DAILY #30 tabs 07/14/20 05/05/25 Rx release (Adult Aspirin Regimen) losartan 25 mg tablet 50 mg (2 x 25 mg) PO QAM #90 tabs 12/05/21 05/05/25 Rx nitroglycerin 0.4 mg sublingual 0.4 mg sublingual Q5M PRN chest 05/31/24 04/21/25 History tablet pain budesonide 0.25 mg/2 mL suspension 0.25 mg inhalation BID 09/20/24 05/05/25 History for nebulization fluticasone propionate 93 2 spray intranasal DAILY 09/20/24 05/05/25 History mcg/actuation breath activated aerosol (Xhance) epinephrine 0.3 mg/0.3 mL 0.3 mg (0.3 mL) IM ONCE #2 ea 10/14/24 04/21/25 Rx injection, auto-injector (EpiPen 2-French) rosuvastatin 20 mg tablet (Crestor) 20 mg PO DAILY #90 tabs 01/10/25 05/05/25 Rx empagliflozin 25 mg tablet See Rx Instructions .Route 01/31/25 05/05/25 Rx (Jardiance) .COMPLEX #90 tabs cetirizine 10 mg capsule (Zyrtec) 10 mg PO DAILY PRN allergy symptoms 02/14/25 04/21/25 History lorazepam 0.5 mg tablet 0.5 mg PO TID PRN anxiety #30 tabs 03/08/25 04/21/25 Rx ipratropium bromide 0.02 % 2.5 ml inhalation QID PRN 04/08/25 04/21/25 Rx solution for inhalation shortness of breath or wheezing #150 mL mometasone-formoterol HFA 200 2 puff inhalation Q12H #13 grams 04/08/25 05/05/25 Rx mcg-5 mcg/actuation aerosol inhaler (Dulera) dupilumab 200 mg/1.14 mL 300 mg subcut WEEKLY 04/21/25 05/05/25 History subcutaneous pen injector (Dupixent) metformin 500 mg tablet,extended 500 mg PO BID 04/21/25 05/05/25 History release 24 hr carvedilol 6.25 mg tablet See Rx Instructions .Route 05/02/25 05/05/25 Rx .COMPLEX #180 tabs Patient hx anesthesia problems: none Family hx anesthesia problems: none Results Review: All pre-operative results and documents have been reviewed as part of the pre-operative evaluation. [facility] Past Medical History Medical History (Updated 05/05/25 @ 07:04 by Naren Quispe DO) Cardiomyopathy EF 40% Aortic stenosis mild Parotid sialolithiasis Benign positional vertigo Anxiety Claustrophobia DM2 (diabetes mellitus, type 2) Rheumatoid arthritis Diabetes mellitus, new onset Hyperlipidemia Hypertension Surgical History Surgical History Status post cardiac catheterization with stent to LAD 07/13/2020 S/P tonsillectomy and adenoidectomy H/O colonoscopy with polypectomy Family History Family History Father Cerebrovascular accident Mother Congestive heart failure age 97, no history of CAD Hyperlipemia Hypertension Heart attack Social History Social History Social History: the patient lives with his Lupe and she is the durable power compliance attorney. The patient is listed as a full code. The patient has 2 biological children and 1 stepchild. He occasionally drinks a your glass in line. 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 he is a lifelong nonsmoker no marijuana or illicit drugs. Smoking status: Never smoker Alcohol intake: never Substance use: never Substance use type: does not use Lack of Transportation: No Lack of Food: Never True Current Housing: I Have Housing Concerned About Future Housing: No Difficulty Paying Gas/Electric Bills: No Difficulty Paying for Meds: No Currently Unemployed: No Education: Bachelor's Degree Difficulty w/ Childcare or Family Care: No Living arrangements: with family Gender identity (if verbalized by the patient): Male Sexual Orientation (if Verbalized by the Patient): Straight or Heterosexual Spiritual care concerns: No Anes - Eval Final PreProcedure Day of Procedure 05/05/25 07:02 Patient weight: obese Heart: regular rate and rhythm Lungs: clear to auscultation Airway: Mallampati scale class II Neurological: alert and oriented Last oral intake: >/= 8 hours ASA classification: IV Emergent: no Anesthetic plan: proceed Anesthesia type and monitoring: general GIVS and standard monitoring Results Review: All pre-operative results and documents have been reviewed as part of the pre-operative evaluation. Informed Consent: The patient's anesthetic plan and its attendant risks and benefits were discussed with the patient/family/POA. Questions were solicited and answers provided to the satisfaction of the patient/family/POA.
[2025-05-05] MEDS: LACTATED RINGERS 1,000 ML 150 ML IV CONT (07:10)
--- NOTE | 2025-05-05 07:52 | PM.HPGS ---
History of Present Illness History of Present Illness Consent: Risks, benefits, and alternatives have been discussed and questions answered. Patient agrees to proceed with procedure. Chief complaint: SCREENING/PERSONAL HX OF COLON POLYPS Narrative: Sam Veliz is a 70 year old male with last colonoscopy 2017 Review of Systems Review of Systems: All systems reviewed & are unremarkable except as noted in HPI and below PMFSH Past Medical History Medical History (Updated 05/05/25 @ 07:04 by Naren Quispe, ) Cardiomyopathy EF 40% Aortic stenosis mild Parotid sialolithiasis Benign positional vertigo Anxiety Claustrophobia DM2 (diabetes mellitus, type 2) Rheumatoid arthritis Diabetes mellitus, new onset Hyperlipidemia Hypertension Surgical History Surgical History Status post cardiac catheterization with stent to LAD 07/13/2020 S/P tonsillectomy and adenoidectomy H/O colonoscopy with polypectomy Family History Family History Father Cerebrovascular accident Mother Congestive heart failure age 97, no history of CAD Hyperlipemia Hypertension Heart attack Social History Social History Social History: the patient lives with his Lupe and she is the durable power compliance director. The patient is listed as a full code. The patient has 2 biological children and 1 stepchild. He occasionally drinks a your glass in line. 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 he is a lifelong nonsmoker no marijuana or illicit drugs. Smoking status: Never smoker Alcohol intake: never Substance use: never Substance use type: does not use Lack of Transportation: No Lack of Food: Never True Current Housing: I Have Housing Concerned About Future Housing: No Difficulty Paying Gas/Electric Bills: No Difficulty Paying for Meds: No Currently Unemployed: No Education: Bachelor's Degree Difficulty w/ Childcare or Family Care: No Living arrangements: with family Gender identity (if verbalized by the patient): Male Sexual Orientation (if Verbalized by the Patient): Straight or Heterosexual Spiritual care concerns: No Meds Home Medications and Allergies Home Medications ?Medication ?Instructions ?Recorded ?Confirmed ?Type aspirin 81 mg tablet,delayed 81 mg PO DAILY #30 tabs 07/14/20 05/05/25 Rx release (Adult Aspirin Regimen) losartan 25 mg tablet 50 mg (2 x 25 mg) PO QAM #90 tabs 12/05/21 05/05/25 Rx nitroglycerin 0.4 mg sublingual 0.4 mg sublingual Q5M PRN chest 05/31/24 04/21/25 History tablet pain budesonide 0.25 mg/2 mL suspension 0.25 mg inhalation BID 09/20/24 05/05/25 History for nebulization fluticasone propionate 93 2 spray intranasal DAILY 09/20/24 05/05/25 History mcg/actuation breath activated aerosol (Xhance) epinephrine 0.3 mg/0.3 mL 0.3 mg (0.3 mL) IM ONCE #2 ea 10/14/24 04/21/25 Rx injection, auto-injector (EpiPen 2-French) rosuvastatin 20 mg tablet (Crestor) 20 mg PO DAILY #90 tabs 01/10/25 05/05/25 Rx empagliflozin 25 mg tablet See Rx Instructions .Route 01/31/25 05/05/25 Rx (Jardiance) .COMPLEX #90 tabs cetirizine 10 mg capsule (Zyrtec) 10 mg PO DAILY PRN allergy symptoms 02/14/25 04/21/25 History lorazepam 0.5 mg tablet 0.5 mg PO TID PRN anxiety #30 tabs 03/08/25 04/21/25 Rx ipratropium bromide 0.02 % 2.5 ml inhalation QID PRN 04/08/25 04/21/25 Rx solution for inhalation shortness of breath or wheezing #150 mL mometasone-formoterol HFA 200 2 puff inhalation Q12H #13 grams 04/08/25 05/05/25 Rx mcg-5 mcg/actuation aerosol inhaler (Dulera) dupilumab 200 mg/1.14 mL 300 mg subcut WEEKLY 04/21/25 05/05/25 History subcutaneous pen injector (Dupixent) metformin 500 mg tablet,extended 500 mg PO BID 04/21/25 05/05/25 History release 24 hr carvedilol 6.25 mg tablet See Rx Instructions .Route 05/02/25 05/05/25 Rx .COMPLEX #180 tabs Allergies Allergy/AdvReac Type Severity Reaction Status Date / Time codeine Allergy Intermediate HIVES Verified 05/05/25 06:48 lisinopril Allergy Unknown Unknown Verified 05/05/25 06:48 sulfamethoxazole (From AdvReac Intermediate skin Verified 05/05/25 06:48 Sulfamethoxazole-Trimethoprim) symptoms trimethoprim (From AdvReac Intermediate skin Verified 05/05/25 06:48 Sulfamethoxazole-Trimethoprim) symptoms albuterol AdvReac coughing Verified 05/05/25 06:48 Vital Signs Vital Signs - 24 hr 05/05/25 06:40 Temperature 97.9 F Pulse Rate 69 Respiratory Rate 18 Blood Pressure 128/60 Pulse Oximetry 98 Oxygen Delivery Room Air Exam Const: General: comfortable and no acute distress HENMT: Face/Nose/Sinus: Normal nares present Eyes: General: appearance normal, both eyes and all related structures Resp: Auscultation: clear to auscultation bilaterally Cardio: Rate: regular rate Rhythm: regular rhythm GI: Inspection: non-distended GI Palp: Yes Soft to palpation Skin: General skin exam: normal color Extrem: General: normal to inspection Psych: Mental Status: mental status grossly normal Assessment and Plan Assessment and plan (1) H/O colonoscopy with polypectomy: Code(s): Z98.890 - Other specified postprocedural states; Z86.010 - Personal history of colon polyps Status: Acute Assessment and Plan: colonoscopy
--- NOTE | 2025-05-05 08:03 | S_PTH ---
PATIENT: Sam Veliz LOC: [facility]#:[id number] AGE/SX: 70/M ROOM: RE05/05/[address]: Orville Purdy MD : 1955 BED: DIS: 05/05/2025 SPEC #: [id number] RECD: 05/05/25 08:30 STATUS: DEBBIE BYNUM #: [id number] ANNE: 05/05/25 08:[address]: Orville Purdy DEPT: [facility] Surgical RECD BY: Marycruz Lund MLT, ([facility]) ENTERED: 05/05/25 08:30 SP TYPE: Surgical OTHR DR: Porfirio Constantino MD Tissues: A - Colon Polypectomy Procedures: Hematoxylin and Eosin Stain Gross and Microscopic Level 4
[2025-05-05 08:05] VITALS: BP 117/58; PULSE 65; RESP 18; O2SAT 98
[2025-05-05 08:10] VITALS: BP 111/63; PULSE 64; RESP 18; O2SAT 98
[2025-05-05 08:15] VITALS: BP 123/67; PULSE 64; RESP 18; O2SAT 98
== END 2025-05-05 08:30 | disposition home or self-care (01) ==
PROVIDERS: PCP Family Medicine; Referring Provider Family Medicine; Visit Provider Internal Medicine Gastroenterology
PROC: 0DJD8ZZ Inspection of Lower Intestinal Tract, Via Natural or Artificial Opening Endoscopic (ICD-10-PCS; CPT 45378; principal; 2025-05-05 08:00)
DX: Z12.11 Encounter for screening for malignant neoplasm of colon (principal); D12.3 Benign neoplasm of transverse colon; K57.30 Diverticulosis of large intestine without perforation or abscess without bleeding; E11.9 Type 2 diabetes mellitus without complications; E66.9 Obesity, unspecified; Z68.34 Body mass index [BMI] 34.0-34.9, adult
CPT/HCPCS: 45385; 82948; 88305; J2704; J7120